=== PATIENT | male | born 1945 | race African-American/Black ===

== ENCOUNTER 2018-07-06 15:00 | Inpatient (IN) | payer MEDICARE ==
[~2018-07-06] VITALS: Ht 193 cm; Wt 70.0 kg
[2018-07-06] MEDS ORDERED: ASPIRIN EC81 M1 PO (15:12)
[2018-07-06] MEDS ORDERED: TENORMIN50 MG PO (15:12)
[2018-07-06] MEDS ORDERED: ATIVAN1 MG PO (15:12)
[2018-07-06] MEDS ORDERED: LIPITOR10 MG PO (15:12)
[2018-07-06] MEDS ORDERED: ATROPINE SULFATE (15:15)
[2018-07-06] MEDS ORDERED: DEPAKENE 2250 MG/5 M PO (15:16)
[2018-07-06] MEDS ORDERED: DEPAKOTE ER250 MG PO (15:16)
[2018-07-06] MEDS ORDERED: COLACE100 MG PO (15:17)
[2018-07-06] MEDS ORDERED: ELIQUIS5 MG PO (15:17)
[2018-07-06] MEDS ORDERED: FOLIC ACID1 MG PO (15:18)
[2018-07-06] MEDS ORDERED: HALDOL5 MG PO (15:18)
[2018-07-06] MEDS ORDERED: CHRONULAC30 ML PO (15:19)
[2018-07-06] MEDS ORDERED: LEVOFLOXACIN500 MG PO (15:19)
[2018-07-06] MEDS ORDERED: INGREZZA (15:19)
[2018-07-06] MEDS ORDERED: MAALOX ADVANCE355 ML PO (15:20)
[2018-07-06] MEDS ORDERED: TRAZODONE HCL150 MG PO (15:20)
[2018-07-06] MEDS ORDERED: MULTI-DAY VITAM1 TAB PO (15:20)
[2018-07-06] MEDS ORDERED: VITAMIN D31000 UNIT PO (15:21)
[2018-07-06] MEDS ORDERED: ACETAMINOPHEN325 MG PO (15:21)
[2018-07-06] MEDS ORDERED: ZYPREXA15 MG PO (15:22)
[2018-07-06 16:23] LABS: INR 1.86 (0.85-1.17); PROTIME 20.8 SECONDS (11.6-15.0)
[2018-07-06 16:26] LABS: BASOPHILS 0.1 % (0-2); EOSINOPHILS 0 % (0-7); HEMATOCRIT 38.3 % (42.0-54.0); HEMOGLOBIN 11.8 g/dL (13.5-17.5); IMMATURE GRANULOCYTES 1.1 % (0-5); LYMPHOCYTES 8.6 % (15-50); MCH 23.4 pg (26.0-34.0); MCHC 30.8 g/dL (31.0-37.0); MEAN PLATELET VOLUME 9.3 fL (7.4-10.4); MONOCYTES 20.3 % (2-11); NEUTROPHILS 69.9 % (40-80); PLATELET COUNT 212 10x3/uL (130-400); RBC 5.04 10x6/uL (4.20-6.10); WBC 15.9 10x3/uL (4.8-10.8)
[2018-07-06 16:30] LABS: ALBUMIN 1.8 g/dL (3.4-5.0); ALKALINE PHOSPHATASE 52 U/L (46-116); ALT (SGPT) 35 U/L (10-68); BILIRUBIN - TOTAL 0.36 mg/dL (0.2-1.3); CALC OSMOLALITY 302 mosm/kg (275-300); CALCIUM 9.1 mg/dL (8.5-10.1); CARBON DIOXIDE 32.6 mmol/L (21.0-32.0); CHLORIDE - SERUM 112 mmol/L (98-107); CREATININE - SERUM 0.9 mg/dL (0.6-1.3); GLUCOSE 99 mg/dL (74-106); POTASSIUM - SERUM 4.3 mmol/L (3.5-5.1); PROTEIN - SERUM 6.5 g/dL (6.4-8.2); SODIUM 151 mmol/L (136-145); UREA NITROGEN 20 mg/dL (7-18); eGFR NON AFRICAN AMERICAN 88 mL/min (90-120)
[2018-07-06 16:31] LABS: MAGNESIUM - SERUM 2.4 mg/dL (1.8-2.4); TROPONIN-I < 0.017 ng/mL (0.000-0.060)
--- NOTE | 2018-07-06 17:20 | NUR ---
IN AND OUT CATH FOR URINE, SAMPLE TO LAB.
[2018-07-06 17:32] LABS: APPEARANCE CLEAR (CLEAR); BILIRUBIN NEGATIVE (NEGATIVE); COLOR YELLOW (YELLOW); GLUCOSE NEGATIVE (NEGATIVE); KETONE NEGATIVE (NEGATIVE); NITRITE NEGATIVE (NEGATIVE); PROTEIN NEGATIVE (NEGATIVE); UROBILINOGEN NORMAL (NORMAL)
--- NOTE | 2018-07-06 19:00 | NUR ---
REPORT RECEIVED AND CARE OF PT ASSUMED. PT JUST ARRIVED ON UNIT FROM ER. TRANSFERRED TO BED AND POSITIONED FOR COMFORT. IV TO LEFT AC...STARTED IV FLUIDS AT 125 ML/HR PER ORDER. HELL PROTECTORS IN PLACE FROM ALF.
--- NOTE | 2018-07-06 19:40 | NUR ---
TELEMETRY PLACED PER ORDER. PT READING 66 SR AT THIS ASSESSMENT. CONTINUOUS PULSE OX IN USE. WILL CONTINUE TO MONITOR FOR NEEDS.
[2018-07-06 20:00] VITALS: BP 132/64
--- NOTE | 2018-07-06 20:20 | NUR ---
CALLED DR VAUGHAN TO ADVISE OF CONSULT. RECEIVED ORDER TO DISCONTINUE ELIQUIS AND KEEP ON LOVENOX. WILL SEE PT IN THE AM.
--- NOTE | 2018-07-06 21:38 | NUR ---
HS MEDICATIONS GIVEN CRUSHED MIXED WITH PUDDING. PT TOLERATED WELL.
--- NOTE | 2018-07-06 22:50 | NUR ---
RECEIVED CALL FROM RUSSEL ORDAZ PT'Renetta ADAME. GAVE UPDATE WITH PT CONSENT.
[2018-07-07] VITALS (7 sets, daily range): BP systolic 107–132; BP diastolic 53–66; Ht 193 cm; Wt 70.0 kg
--- NOTE | 2018-07-07 00:31 | NUR ---
ADMISSION ASSESSMENT AND HISTORY COMPLETE.
[2018-07-07 06:49] LABS: HEMATOCRIT 37.9 % (42.0-54.0); HEMOGLOBIN 11.5 g/dL (13.5-17.5); MCH 23.1 pg (26.0-34.0); MCHC 30.3 g/dL (31.0-37.0); MCV 76.1 fL (80.0-100.0); MEAN PLATELET VOLUME 9.3 fL (7.4-10.4); PLATELET COUNT 190 10x3/uL (130-400); RBC 4.98 10x6/uL (4.20-6.10); WBC 18.7 10x3/uL (4.8-10.8)
[2018-07-07 07:15] LABS: CALC OSMOLALITY 294 mosm/kg (275-300); CALCIUM 8.9 mg/dL (8.5-10.1); CARBON DIOXIDE 28.1 mmol/L (21.0-32.0); CHLORIDE - SERUM 111 mmol/L (98-107); CREATININE - SERUM 0.7 mg/dL (0.6-1.3); GLUCOSE 132 mg/dL (74-106); POTASSIUM - SERUM 4.4 mmol/L (3.5-5.1); SODIUM 147 mmol/L (136-145); eGFR NON AFRICAN AMERICAN > 90 mL/min (90-120)
[2018-07-07 07:17] LABS: UREA NITROGEN 14 mg/dL (7-18)
[2018-07-07 07:24] LABS: LYMPHOCYTES 7 % (15-50); MONOCYTES 10 % (2-11); NEUTROPHILS 75 % (40-80); PLATELET ESTIMATE NORMAL
--- NOTE | 2018-07-07 08:50 | NUR ---
ADMINISTERED PT MEDS WITH APPLESAUCE, ATTEMPTED TO FEED PT BREAKFAST, PT ORDERS STATE PUREED DIET, PT HAD EGGS BISCUIT AND HANCOCK ON TRAY NOT PUREED. ABLE TO FEED PT 2 SPOONFULS OF EGGS AND ONE OF IATMEAL. PT THEN REFUSED TO OPEN MOUTH FOR ANY MORE. WILL ATTEMPT AFTER A LITTLE TIME GOES BY. PT IS OF LITTLE ORDS. WILL CONTINUE WITH PLAN OF CARE
--- NOTE | 2018-07-07 16:15 | NUR ---
ASSITED REGIONAL EDUCATION COORDINATOR WITH CHANGING PT HE IS INCONTINENT. IN ROOM WITH PT WHILE DR VAUGHAN ASKED QUESTIONS. PT WAS ABLE TO ANSWER QUESTIONS APPROPRATELY. PT STATED HE WAS HUNGRY. REHEATED PT LUNCH AND PT WAS ABLE TO EAT 25% OF TRAY. CONTINUE WITH PLAN OF CARE
--- NOTE | 2018-07-07 18:47 | NUR ---
I have reviewed this patient and I concur with the Shift Assessment completed by the Licensed Practical Nurse today this shift.
--- NOTE | 2018-07-07 19:00 | NUR ---
REPORT RECEIVED AND CARE OF PT ASSUMED. PT LYING IN MID KOVACS'S POSITION WITH EYES CLOSED AND EASY RESPIRATIONS....VERY LETHARGIC AND DOES NOT RESPOND TO VOICE. PULSE OX 100% WITH PULSE OF 68 AT THIS ASSESSMENT. WILL MONITOR CLOSLEY FOR NEEDS.
--- NOTE | 2018-07-07 21:52 | NUR ---
CRUSHED HS MEDICATIONS AND MIXED WITH APPLESAUCE. PT ONLY TOOK SMALL PORTION...WOULD NOT WAKE UP ENOUGH TO FINISH MEDS...VERY LETHARGIC. WILL CONTINUE TO MONITOR FOR NEEDS.
[2018-07-08] VITALS (7 sets, daily range): BP systolic 104–130; BP diastolic 59–82
[2018-07-08 08:23] LABS: HEMATOCRIT 35.7 % (42.0-54.0); HEMOGLOBIN 11.4 g/dL (13.5-17.5); MCH 23.5 pg (26.0-34.0); MCHC 31.9 g/dL (31.0-37.0); MEAN PLATELET VOLUME 9.8 fL (7.4-10.4); PLATELET COUNT 186 10x3/uL (130-400); RBC 4.85 10x6/uL (4.20-6.10); RDW 14.7 % (11.5-14.5); WBC 17.2 10x3/uL (4.8-10.8)
[2018-07-08 08:26] LABS: MCV 73.6 fL (80.0-100.0)
[2018-07-08 08:44] LABS: EOSINOPHILS 2 % (0-7); LYMPHOCYTES 10 % (15-50); MONOCYTES 16 % (2-11); NEUTROPHILS 71 % (40-80)
[2018-07-08 08:45] LABS: PLATELET ESTIMATE NORMAL
--- NOTE | 2018-07-08 19:00 | NUR ---
REPORT RECEIVED AND CARE OF PT ASSUMED. PT LYING ON RIGHT SIDE PROPPED WITH PILLOWS. CHANGED ALL LINENS AND GOWN DUE TO INCONTINENCE WITH ASSISTANCE OF 2 OTHER NURSES. POSITIONED FOR COMFORT WITH PILLOW BETWEEN KNEES AND PROPPED TO LEFT SIDE WITH PILLOW. HEEL PROTECTORS IN PLACE OF BLE. IV IN RIGHT FA PATENT WITH D5 1/2 NS INFUSING AT 125 ML / HR. TELEMETRY IN PLACE AND READING 97 SR W/ BBB AT THIS ASSESSMENT. WILL MONITOR FOR NEEDS.
--- NOTE | 2018-07-08 20:32 | NUR ---
HS MEDICATIONS GIVEN WHOLE IN PUDDING.
[2018-07-09 04:30] VITALS: BP 138/76
[2018-07-09 06:29] LABS: BASOPHILS 0.1 % (0-2); EOSINOPHILS 0.8 % (0-7); HEMATOCRIT 34.7 % (42.0-54.0); HEMOGLOBIN 10.5 g/dL (13.5-17.5); IMMATURE GRANULOCYTES 2.2 % (0-5); LYMPHOCYTES 9.8 % (15-50); MCH 22.8 pg (26.0-34.0); MCHC 30.3 g/dL (31.0-37.0); MCV 75.4 fL (80.0-100.0); MEAN PLATELET VOLUME 9.2 fL (7.4-10.4); MONOCYTES 19.1 % (2-11); PLATELET COUNT 194 10x3/uL (130-400); RDW 14.9 % (11.5-14.5); WBC 13.9 10x3/uL (4.8-10.8)
[2018-07-09 06:43] LABS: CALC OSMOLALITY 292 mosm/kg (275-300); CALCIUM 8.4 mg/dL (8.5-10.1); CARBON DIOXIDE 29.3 mmol/L (21.0-32.0); CHLORIDE - SERUM 111 mmol/L (98-107); CREATININE - SERUM 0.7 mg/dL (0.6-1.3); GLUCOSE 140 mg/dL (74-106); SODIUM 147 mmol/L (136-145); UREA NITROGEN 11 mg/dL (7-18); eGFR NON AFRICAN AMERICAN > 90 mL/min (90-120)
[2018-07-09 06:44] LABS: POTASSIUM - SERUM 3.5 mmol/L (3.5-5.1)
[2018-07-09 07:56] VITALS: BP 128/56
--- NOTE | 2018-07-09 10:07 | NUR ---
PT RESTING IN BED. BREATH SOUNDS CLEAR BILAT. IV TO LEFT FOREARM, PATENT, DRESSING CDI. TELEMETRY IN PLACE. HEEL PROTECTORS ON. PT MUMBLING. BED LOW, CALL LIGHT IN REACH. NO OTHER NEEDS AT THIS TIME.
--- NOTE | 2018-07-09 10:07 | EC ---
PATIENT:GUNJAN ANNE DATE OF SERVICE: 07/06/18 SEX: M MEDICAL RECORD: [id number] DATE OF : 43 LOCATION:[facility] AGE OF PATIENT: 73 ADMISSION DATE: 07/06/18 REFERRING PHYSICIAN: INTERPRETING PHYSICIAN: CHLOE SINGER MD ECHOCARDIOGRAM REPORT ECHO CHARGES 4 ECHO COMPLETE Date: 07/07/18 CLINICAL DIAGNOSIS: PE ASSESS FOR CLOTS ECHOCARDIOGRAPHIC MEASUREMENTS (adult normal given) AC root (d.<3.7cm) 3.6 cm LV Septum d (<1.2 cm> cm Valve Excursion 1.9 cm LV Septum (systole) cm Left Atria (s.<4.0cm> 2.7 cm LVPW d(<1.2cm) cm RV (d.<2.3cm) 3.8 cm LVPW (sytole) cm LV diastole(<5.6CM) 4.4 cm MV E-F(>70mm/sec) cm LV systole 3.2 cm LVOT Diameter 2.3 cm MV exc.(>10mm) cm Est.ejection fraction (50-75%) % DOPPLER: LVIT cm/sec A 72.0 cm/sec E 59.0 cm/sec LA cm/sec RVSP 17 mmHg LVOT 96 cm/sec AOP1/2T m/s Asc. Ao 126 cm/sec RVOT 80 cm/sec RA cm/sec PA 115 cm/sec AV Gradient Peak 6.33 mmHg AV Mean 3.90 mmHg AV Area 2.7 cm MV Gradient Peak 3.49 mmHg MV Mean 1.31 mmHg MV Area cm COMMENTS: Glass Installer Technician: 2 SHAY ORTIZ Transmission Assembler: 3 Dr. Lino TAPE# PACS Pericardial Effusion N DATE OF SERVICE: Adequate 2-D echo, color-flow and spectral Doppler, and M-mode. Grossly, no LVH. LV internal dimensions are normal. Wall motion is normal. EF is greater than or equal to 55%. Aortic valve is tricuspid. No evidence of stenosis by Doppler interrogation. Left atrium is normal at 3.7 cm. Mitral valve shows no prolapse. Mild MR. Right-sided chambers are grossly normal. Trace TR. ECHOCARDIOGRAM REPORT [id number] GUNJAN ANNE TRANSINT:[id number] Voice Confirmation ID: [id number] DOCUMENT ID: [id number] CHLOE SINGER MD at 1007 CC: [id number] DICTATION DATE: 07/08/18 1006 DAY TREATMENT CLINICIAN/ART THERAPIST: 07/08/18 1706 ADM IN [place] [id number] [place] [id number]
[2018-07-09 12:37] VITALS: BP 112/64
[2018-07-09 17:23] VITALS: BP 110/60
[2018-07-09 21:24] VITALS: BP 129/52
[2018-07-10 01:28] VITALS: BP 103/56
--- NOTE | 2018-07-10 03:15 | NUR ---
I have reviewed this patient and I concur with the Shift Assessment completed by the Licensed Practical Nurse today this shift.
--- NOTE | 2018-07-10 03:30 | NUR ---
RECIEVED CALL FROM TELEMETRY THAT HEART RATE WAS 30. ENTERED ROOM, PT RESPONDED TO VERBAL/VISUAL STIMULATION SPONTANEOUSLY. O2 REAPPLIED ON PT. SPO2 97% ON 2L. PULSE READING IS 101bpm. PT STATED HE WAS COLD, REQUESTED HEATED BLANKET. CALLED CARDIAC MONITORING, INFORMED THAT PTs HEARTRATE WAS BACK TO 98bpm. WILL MONITOR CLOSELY. CONTINUOUS PULSE OX REAPPLIED.
[2018-07-10 05:34] VITALS: BP 126/71
[2018-07-10 06:37] LABS: BASOPHILS 0.2 % (0-2); EOSINOPHILS 3.3 % (0-7); HEMATOCRIT 35.1 % (42.0-54.0); HEMOGLOBIN 10.9 g/dL (13.5-17.5); IMMATURE GRANULOCYTES 2.5 % (0-5); LYMPHOCYTES 11.1 % (15-50); MCH 23.2 pg (26.0-34.0); MCHC 31.1 g/dL (31.0-37.0); MCV 74.7 fL (80.0-100.0); MEAN PLATELET VOLUME 8.8 fL (7.4-10.4); NEUTROPHILS 67.9 % (40-80); PLATELET COUNT 193 10x3/uL (130-400); RDW 14.8 % (11.5-14.5); WBC 12.6 10x3/uL (4.8-10.8)
[2018-07-10 06:43] LABS: CALC OSMOLALITY 287 mosm/kg (275-300); CALCIUM 8.7 mg/dL (8.5-10.1); CARBON DIOXIDE 28.5 mmol/L (21.0-32.0); CHLORIDE - SERUM 111 mmol/L (98-107); CREATININE - SERUM 0.6 mg/dL (0.6-1.3); POTASSIUM - SERUM 3.8 mmol/L (3.5-5.1); SODIUM 145 mmol/L (136-145); UREA NITROGEN 10 mg/dL (7-18); eGFR NON AFRICAN AMERICAN > 90 mL/min (90-120)
[2018-07-10 06:46] LABS: GLUCOSE 90 mg/dL (74-106)
--- NOTE | 2018-07-10 07:55 | NUR ---
PT IS YELLING OUT, HE WANTS SODE. 02 PLACED BACK ON PT. HE IS PULLING 02 OFF AND PULSE OX OFF. HE REFUSES TO PUT PULSE OX BACK ON.
[2018-07-10 08:38] VITALS: BP 117/84
--- NOTE | 2018-07-10 13:01 | MORECARE ---
CASE MANAGEMENT DISCHARGE SUMMARY PATIENT: GUNJAN ANNE UNIT: [id number] ADM DATE: 07/06/18 AGE: 73 : 44 SEX: M ROOM/BED: D.2219 AUTHOR: GINA HINSON PHYSICIAN: REFERRING PHYSICIAN: KETTY WALTON MD DATE OF SERVICE: 07/10/18 Discharge Plan Patient Name: GUNJAN ANNE Facility: [facility]:[place] : 1945 Planned Disposition: Nursing Facility SAY Cert Anticipated Discharge Date: Discharge Date: Expected LOS: Initial Reviewer: [email or web address] Initial Review Date: 07/06/2018 Generated: 07/10/18 2:01 pm Coverage Notice Reviewer: [id number] - Sharonda Keating Notice Issued Date-Time: 07/10/2018 12:44 Notice Type: IM Discharge Notice Notice Delivered To: Patient Relationship to Patient: Medical Billing Supervisor Name: Delivery Method: HAND - Hand Delivered Cierra Days: Prior Verbal Notification: Recipient Understood Notice: Yes Recipient Signature: Med Rec Note Co-signed by Attending: Coverage Notice Comment: pt unable to sign Patient Name: GUNJAN ANNE Page [phone] at 1301 All edits/amendments must be made on the electronic document DICTATION DATE: 07/10/18 1301 MACHINE LOAD CLERK: GEOFFREY 07/10/18 1301 RPT#: [id number] DC DATE: STATUS: ADM IN [facility] [address] [place] [address] END OF REPORT
--- NOTE | 2018-07-10 13:09 | MORECARE ---
CASE MANAGEMENT DISCHARGE SUMMARY PATIENT: GUNJAN ANNE UNIT: [id number] ADM DATE: 07/06/18 AGE: 73 : 44 SEX: M ROOM/BED: D.2219 AUTHOR: GINA HINSON PHYSICIAN: REFERRING PHYSICIAN: KETTY WALTON MD DATE OF SERVICE: 07/10/18 Discharge Plan Patient Name: GUNJAN ANNE Facility: [facility]:[place] : 1945 Planned Disposition: Nursing Facility SAY Cert Anticipated Discharge Date: Discharge Date: Expected LOS: Initial Reviewer: [email or web address] Initial Review Date: 07/06/2018 Generated: 07/10/18 2:09 pm Comments DCP- Discharge Planning Updated by [email or web address]: Sharonda Keating on 07/10/18 12:[address] Patient Name: GUNJAN ANNE Admission Status: ER Accout number: [id number] Admission Date: 07-06-2018 : 1945 Admission Diagnosis:ACUTE EMBOLISM AND THOMBOS UNSP DEEP VN UNSP LOWER EXTR Attending: KETTY WALTON Current LOS: 4 Anticipated DC Date: Planned Disposition: Nursing Facility [facility] Cert Primary Insurance: MEDICARE A & B Discharge Planning Comments: PATIENT WILL BE DISHCARGING BACK TO THE [facility] (OLD [facility]ERTIAGE ) THIS IS WHERE HE LIVES, HE WILL BE GOING TO A SENIOR CARE BED. THEY WILL PICK HIM UP AROUND 3:00. IMM EXPLAINED AND GIVEN. HE WOULD/COULD NOT SIGN THE IMM. COPY PLACED IN ROOM. KAVITHA WITH [facility] NOTIFIED AND FAXED CLINICALS. CM TO FOLLOW AND ASSIST NEEDED Fingerprinter: Sharonda Keating External Providers External Provider: [facility] Next Contact Date: Service Request Date: Service Type: Resolution: Reviewer: Comments: Coverage Notice Reviewer: [id number] - Sharonda Keating Notice Issued Date-Time: 07/10/2018 12:44 Notice Type: IM Discharge Notice Notice Delivered To: Patient Relationship to Patient: Aquatic Facility Manager Name: Delivery Method: HAND - Hand Delivered Cierra Days: Prior Verbal Notification: Recipient Understood Notice: Yes Recipient Signature: Med Rec Note Co-signed by Attending: Coverage Notice Comment: pt unable to sign Last DP export: 07/10/18 12:01 p Patient Name: GUNJAN ANNE Page [phone] at 1309 All edits/amendments must be made on the electronic document DICTATION DATE: 07/10/181307 RESIDENTIAL REAL ESTATE SALES MANAGER: GEOFFREY 07/10/181307 RPT#: [id number] DC DATE: STATUS: ADM IN [facility] [address] [place] [address] END OF REPORT
--- NOTE | 2018-07-11 14:55 | MORECARE ---
CASE MANAGEMENT DISCHARGE SUMMARY PATIENT: GUNJAN ANNE UNIT: [id number] ADM DATE: 07/06/18 AGE: 73 : 44 SEX: M ROOM/BED: D.2219 AUTHOR: GINA HINSON PHYSICIAN: REFERRING PHYSICIAN: KETTY WALTON MD DATE OF SERVICE: 07/11/18 Discharge Plan Patient Name: GUNJAN ANNE Facility: [facility]:[place] : 1945 Planned Disposition: Nursing Facility SAY Cert Anticipated Discharge Date: Discharge Date: 07/10/2018 Expected LOS: 0 Initial Reviewer: [email or web address] Initial Review Date: 07/06/2018 Generated: 07/11/18 3:55 pm Comments DCP- Discharge Planning Updated by [email or web address]: Sharonda Keating on 07/10/18 12:[address] Patient Name: GUNJAN NANE Admission Status: ER Accout number: [id number] Admission Date: 07-06-2018 : 1945 Admission Diagnosis:ACUTE EMBOLISM AND THOMBOS UNSP DEEP VN UNSP LOWER EXTR Attending: KETTY WALTON Current LOS: 4 Anticipated DC Date: Planned Disposition: Nursing Facility [facility] Cert Primary Insurance: MEDICARE A & B Discharge Planning Comments: PATIENT WILL BE DISHCARGING BACK TO THE [facility] (OLD HERTIAGE ) THIS IS WHERE HE LIVES, HE WILL BE GOING TO A [facility] BED. THEY WILL PICK HIM UP AROUND 3:00. IMM EXPLAINED AND GIVEN. HE WOULD/COULD NOT SIGN THE IMM. COPY PLACED IN ROOM. KAVITHA WITH [facility] NOTIFIED AND FAXED CLINICALS. CM TO FOLLOW AND ASSIST NEEDED Operations Label Clerk: Sharonda Keating External Providers External Provider: [facility] Next Contact Date: Service Request Date: Service Type: Resolution: Reviewer: Comments: Coverage Notice Reviewer: [id number] - Sharonda Keating Notice Issued Date-Time: 07/10/2018 12:44 Notice Type: IM Discharge Notice Notice Delivered To: Patient Relationship to Patient: Windows Admin Name: Delivery Method: HAND - Hand Delivered Cierra Days: Prior Verbal Notification: Recipient Understood Notice: Yes Recipient Signature: Med Rec Note Co-signed by Attending: Coverage Notice Comment: pt unable to sign Last DP export: 07/10/18 12:09 p Patient Name: GUNJAN ANNE Page [phone] at 145 All edits/amendments must be made on the electronic document DICTATION DATE: 07/11/181453 DIRECTOR OF CATERING SALES: GEOFFREY 07/11/184 RPT#: [id number] DC DATE:07/10/18 STATUS: DIS IN [facility] [address] [place] [address] END OF REPORT
== END 2018-07-10 16:51 | DRG 175 ==
LOC: D.ER 15:00 → D.MS 18:36
PROVIDERS: Emergency Medicine; Internal Medicine Pulmonary Disease; ADMIT Legal Medicine; ATTEND Legal Medicine
DX: I26.99 Other pulmonary embolism without acute cor pulmonale (principal); J18.9 Pneumonia, unspecified organism; I82.402 Acute embolism and thrombosis of unspecified deep veins of left lower extremity; E86.0 Dehydration; I10 Essential (primary) hypertension; E78.5 Hyperlipidemia, unspecified; I69.820 Aphasia following other cerebrovascular disease; D64.9 Anemia, unspecified; F20.9 Schizophrenia, unspecified

== ENCOUNTER 2018-07-16 07:20 | Inpatient (IN) | payer MEDICARE ==
[2018-07-16] VITALS (17 sets, daily range): BP systolic 116–148; BP diastolic 57–88; BMI 18.3
[~2018-07-16] VITALS: Ht 193 cm; Wt 67.1 kg
[~2018-07-16 07:20] MED LIST: ACETAMINOPHEN325 MG PO; ASPIRIN EC81 M1 PO; ATIVAN1 MG PO; ATROPINE SULFATE; CHRONULAC30 ML PO; COLACE100 MG PO; DEPAKENE 2250 MG/5 M PO; DEPAKOTE ER250 MG PO; ELIQUIS5 MG PO; FOLIC ACID1 MG PO; HALDOL5 MG PO; INGREZZA; LEVOFLOXACIN500 MG PO; LIPITOR10 MG PO; MAALOX ADVANCE355 ML PO; MULTI-DAY VITAM1 TAB PO; TENORMIN50 MG PO; TRAZODONE HCL150 MG PO; VITAMIN D31000 UNIT PO; ZYPREXA15 MG PO
--- NOTE | 2018-07-16 07:40 | NUR ---
RT AT BS FOR ABG'S. RESULTS SHOWN TO DR STALEY. NRM REMOVED AND PT PLACED ON NC @ 2 LPM.
[2018-07-16 07:56] LABS: HEMATOCRIT 37.4 % (42.0-54.0); HEMOGLOBIN 11.7 g/dL (13.5-17.5); MCH 23.4 pg (26.0-34.0); MCHC 31.3 g/dL (31.0-37.0); MCV 74.8 fL (80.0-100.0); MEAN PLATELET VOLUME 9.1 fL (7.4-10.4); PLATELET COUNT 337 10x3/uL (130-400); RDW 15.1 % (11.5-14.5); WBC 27.8 10x3/uL (4.8-10.8)
[2018-07-16] MEDS ORDERED: DOXYCYCLINE HY100 M2 PO (07:59)
[2018-07-16] MEDS ORDERED: ASCORBIC ACID500 MG PO (08:02)
[2018-07-16] MEDS ORDERED: GALZIN25 MG PO (08:02)
[2018-07-16 08:08] LABS: APTT 72.3 SECONDS (22.8-39.4); INR 2.14 (0.85-1.17); PROTIME 23.2 SECONDS (11.6-15.0)
[2018-07-16 08:24] LABS: ALBUMIN 1.8 g/dL (3.4-5.0); ALKALINE PHOSPHATASE 68 U/L (46-116); ALT (SGPT) 51 U/L (10-68); BILIRUBIN - TOTAL 0.45 mg/dL (0.2-1.3); CALC OSMOLALITY 309 mosm/kg (275-300); CALCIUM 9.5 mg/dL (8.5-10.1); CARBON DIOXIDE 26.2 mmol/L (21.0-32.0); CKMB 5.2 U/L (0.0-3.6); CREATINE KINASE 596 UL (21-232); CREATININE - SERUM 0.7 mg/dL (0.6-1.3); GLUCOSE 110 mg/dL (74-106); POTASSIUM - SERUM 3.7 mmol/L (3.5-5.1); PRO BNP 348 pg/mL (0-125); PROTEIN - SERUM 6.9 g/dL (6.4-8.2); SODIUM 155 mmol/L (136-145); TROPONIN-I < 0.017 ng/mL (0.000-0.060); UREA NITROGEN 18 mg/dL (7-18); eGFR NON AFRICAN AMERICAN > 90 mL/min (90-120)
[2018-07-16 08:26] LABS: CHLORIDE - SERUM 118 mmol/L (98-107)
[2018-07-16 08:30] LABS: ANISOCYTOSIS 2+; LYMPHOCYTES 6 % (15-50); MONOCYTES 5 % (2-11); NEUTROPHILS 80 % (40-80); PLATELET ESTIMATE NORMAL; POLYCHROMASIA 1+
--- NOTE | 2018-07-16 08:30 | NUR ---
ALLIE TC FROM LAB CHLORIDE 118. DR STALEY NOTIFIED
--- NOTE | 2018-07-16 09:30 | NUR ---
LAB AT BS, GOLDIE DRAWN X2
--- NOTE | 2018-07-16 10:05 | NUR ---
FC INSERTED, URINES SPEC OBTAINED, LABELED AT BS AND SENT TO LAB
[2018-07-16 10:16] LABS: APPEARANCE CLEAR (CLEAR); BILIRUBIN NEGATIVE (NEGATIVE); COLOR YELLOW (YELLOW); GLUCOSE NEGATIVE (NEGATIVE); KETONE MODERATE mg/dL (NEGATIVE); NITRITE NEGATIVE (NEGATIVE); PROTEIN NEGATIVE (NEGATIVE); UROBILINOGEN NORMAL (NORMAL)
[2018-07-16 10:18] LABS: AMORPHOUS SEDIMENT >1+ /lpf (NONE SEEN); BACTERIA FEW /hpf (NONE SEEN); EPITHELIAL CELLS 0-5 /hpf (0-5); MUCUS <1+ /lpf (NONE SEEN); RED CELLS - URINE 25-50 /hpf (0-5); WHITE CELLS - URINE 0-5 /hpf (0-5)
--- NOTE | 2018-07-16 10:37 | NUR ---
REPORT CALLED TO IVONE SAPP BY SBAR FORMAT
--- NOTE | 2018-07-16 19:00 | NUR ---
SHIFT ASSESSMENT COMPLETE. PT IS NON-VERBAL AND DOES NOT FOLLOW ANY COMMANDS, PERRLA, 3 MM, BRISK REACTION TO LIGHT. NC ON @ 5 L/MIN. S1S2 AUDIBLE, HR 101 SINUS TACH SHOWING ON MONITOR. RR SHALLOW, CLEAR LUNG SOUNDS HEARD BILAT THROUGHOUT ALL LOBES, O2 SAT 94%. RADIAL PULSES PALP. R HAND PIV INFUSING LR @ 125 ML/HR, NO S/S OF INFILTRATION NOTED. ABD FLAT, BS ACTIVE X4. ROE CATH INTACT DRAINING RANDALL URINE. UPPER AND LOWER EXT ARE CONTRACTED. UNABLE TO PROVIDE PASSIVE ROM, REPOSITIONED WITH PILLOW INBETWEEN LEGS. B/L PRESSURE ULCERS TO HEELS, SEE SKIN ASSESSMENT FOR FURTHER DETIALS. TIGHT PARAMETERS SET ON ICU MONITORS. HONEY THICKENED LIQUID AT BEDSIDE, ORAL CARE PROVIDED. VSS. WILL CONT CLOSE MONITORING IN ICU.
--- NOTE | 2018-07-16 21:28 | NUR ---
CRUSED PILLS AND PLACED THEM IN PUDDING. PT WAS ABLE TO SWALLOW 1/2 TBS OF PUDDING WITH CRUSHED MEDS. WHEN TRYING TO TAKE THE REST OF THE MEDS HE STARTED CHOKING AND SPIT THE REST OF HIS MEDS UP. DESAT TO 88%. SUCTIONED, NC ON @ 5 L/MIN, PT'S SAT IS NOW 94-98%. WILL UPDATE EMAR OF MEDS NOT TAKEN. WILL CONT TO MONITOR VERY CLOSELY.
--- NOTE | 2018-07-16 23:00 | NUR ---
REPOSITIONED FOR COMFORT. REASSESSMENT COMPLETE. NO CHANGES FROM PREVIOUS ASSESSMENT. HE IS UNABLE TO COMMUNICATE, BUT HE DOES NOT APPEAR TO BE IN ANY PAIN AT THIS TIME. VSS. WILL CONT WITH POC. SEE FLOWSHEET FOR FURTHER DETIALS.
[2018-07-17] VITALS (11 sets, daily range): BP systolic 116–151; BP diastolic 54–75; Ht 193 cm; Wt 67.1 kg
--- NOTE | 2018-07-17 01:00 | NUR ---
PT RESTING PEACEFULLY WITH NO SIGNS OF ACUTE DISTRESS NOTED. VSS. WILL CONT WITH POC.
--- NOTE | 2018-07-17 03:00 | NUR ---
REASSESSMENT COMPLETE. PT HAS WET COUGH. UNABLE TO PROVIDE ORAL CARE D/T PT REFUSING. ENCOURAGED ORAL CARE AND STATED THE BENEFITS. NO FURTHER CHANGES IN PT CONDITION. SEE FLOWSHEET FOR FURTHER DETIALS. VSS. WILL CONT WITH POC.
--- NOTE | 2018-07-17 05:00 | NUR ---
CHG BATH AND COMPLETE LINEN CHANGE PROVIDED. ROE CARE AND ORAL CARE PROVIDED. REPOSITIONED FOR COMFORT. PT HAS WET COUGH,, NON-PRODUCTIVE. ENCOURAGED COUGHING AND DEEP BREATHING. TV ON, CALL LIGHT IN REACH. ALL NEEDS MET. WILL CONT WITH POC.
[2018-07-17 06:51] LABS: HEMATOCRIT 39.6 % (42.0-54.0); HEMOGLOBIN 12.3 g/dL (13.5-17.5); LYMPHOCYTES 6.1 % (15-50); MCH 23.7 pg (26.0-34.0); MCHC 31.1 g/dL (31.0-37.0); MCV 76.3 fL (80.0-100.0); MEAN PLATELET VOLUME 9.3 fL (7.4-10.4); NEUTROPHILS 84.1 % (40-80); RBC 5.19 10x6/uL (4.20-6.10); RDW 14.7 % (11.5-14.5)
[2018-07-17 07:08] LABS: PLATELET COUNT 233 10x3/uL (130-400); WBC 18.3 10x3/uL (4.8-10.8)
[2018-07-17 07:29] LABS: ALBUMIN 1.6 g/dL (3.4-5.0); ALKALINE PHOSPHATASE 65 U/L (46-116); ALT (SGPT) 47 U/L (10-68); CALCIUM 8.9 mg/dL (8.5-10.1); CARBON DIOXIDE 28.3 mmol/L (21.0-32.0); CREATININE - SERUM 0.6 mg/dL (0.6-1.3); GLUCOSE 79 mg/dL (74-106); POTASSIUM - SERUM 3.5 mmol/L (3.5-5.1); PROTEIN - SERUM 5.4 g/dL (6.4-8.2); SODIUM 158 mmol/L (136-145); eGFR NON AFRICAN AMERICAN > 90 mL/min (90-120)
[2018-07-17 07:31] LABS: CALC OSMOLALITY 311 mosm/kg (275-300); UREA NITROGEN 12 mg/dL (7-18)
[2018-07-17 07:32] LABS: CHLORIDE - SERUM 119 mmol/L (98-107)
[2018-07-17 07:43] LABS: VALPROIC ACID (DEPAKOTE) < 3.0 ug/mL (50.0-100.0)
--- NOTE | 2018-07-17 07:48 | NUR ---
0700 ASLEEP NO DISTRESS N0TEDD REMAINS AT 5L/NC ASSESSMENT COMPLETE
--- NOTE | 2018-07-17 07:49 | NUR ---
0749 ALEC PAIZ PICK UP ATTENDANT NOTIFIED OF CRITICAL LAB CHLORIDE 119. TRANSFER ORDERS NOTED D/C LR. NEW ORDER NOTED FOR SWALLOW EVAL AND D5W AT 125
--- NOTE | 2018-07-17 11:39 | NUR ---
RECEIVED PATIENT TO FLOOR FROM [facility], ICU. PATIENT RESTING COMFORTABLY MAKING MUMBLY SOUNDS. NO GRIMACING OR SIGNS OF DISTRESS. ASSUMED CARE.
--- NOTE | 2018-07-17 11:54 | NUR ---
0930 REPOSITIONED IN BED FOR COMFORT
--- NOTE | 2018-07-17 11:55 | NUR ---
8484 REPORT CALLED TO ALEJANDRO WISEMAN ON [facility] CALLED ACT TUTOR FOR TELE MONITOR TO BE DELIVERED TO ROOM 1287
--- NOTE | 2018-07-17 15:57 | NUR ---
PRN TYLENOL GIVEN FOR FEVER 102.3. GIVEN CRUSHED IN WITH MODERATE DIFFICULTY.
--- NOTE | 2018-07-17 17:51 | NUR ---
BRAEDEN GOODE, ATTEMPTED TO FEED PATIENT BUT HE WOULD NOT SWALLOW OR OPEN HIS MOUTH. REFUSED TO EAT.
--- NOTE | 2018-07-17 21:00 | NUR ---
LYING QUEITLY WITH NO DISTRESS NOTED. 02 @ 5L PER NC ON. RESP UNALBORED. IV INFUSING TO RIGHT HAND WITHOUT REDNESS OR EDEMA NOTED. TURNED AND POSITIONED FOR COMFORT. CL IN REACH
[2018-07-18 00:40] VITALS: BP 120/59
--- NOTE | 2018-07-18 03:07 | NUR ---
I have reviewed this patient and I concur with the Shift Assessment completed by the Licensed Practical Nurse today this shift.
[2018-07-18 05:21] VITALS: BP 132/69
--- NOTE | 2018-07-18 07:20 | NUR ---
SPOKE WITH CIRILO MICHAEL ABOUT PATIENT HAVING DIFFICULTY SWALLOWING MEDS/HOLDING MEDS IN MOUTH AND DIFFICULT TO AROUSE. ASKED IF COULD CHANGE ANY MEDS TO IV. CIRILO STATES NO MEDS CAN BE CHANGED TO IV. STATES TO ORDER SWALLOW STUDY. STATES IF CAN'T GIVE MEDS, DOCUMENT NOT GIVEN. WILL ORDER SWALLOW.
[2018-07-18 07:24] LABS: HEMATOCRIT 29.8 % (42.0-54.0); MCH 22.7 pg (26.0-34.0); MCHC 30.2 g/dL (31.0-37.0); MCV 75.3 fL (80.0-100.0); MEAN PLATELET VOLUME 8.2 fL (7.4-10.4); PLATELET COUNT 165 10x3/uL (130-400); RBC 3.96 10x6/uL (4.20-6.10); WBC 20.7 10x3/uL (4.8-10.8)
[2018-07-18 07:31] LABS: CALC OSMOLALITY 294 mosm/kg (275-300); CALCIUM 8.5 mg/dL (8.5-10.1); CARBON DIOXIDE 30.2 mmol/L (21.0-32.0); CHLORIDE - SERUM 112 mmol/L (98-107); CREATININE - SERUM 0.7 mg/dL (0.6-1.3); POTASSIUM - SERUM 3.6 mmol/L (3.5-5.1); SODIUM 148 mmol/L (136-145); UREA NITROGEN 10 mg/dL (7-18); eGFR NON AFRICAN AMERICAN > 90 mL/min (90-120)
[2018-07-18 07:32] LABS: GLUCOSE 126 mg/dL (74-106)
[2018-07-18 08:30] LABS: ANISOCYTOSIS OCC; LYMPHOCYTES 8 % (15-50); MONOCYTES 17 % (2-11); NEUTROPHILS 72 % (40-80); PLATELET ESTIMATE NORMAL
--- NOTE | 2018-07-18 08:43 | NUR ---
PATIENT GURGLING SPUTUM IN MOUTH. HOOKED TO SUCTION. MODERATE AMOUNT OF WHITE FROTHY SPUTUM SUCTIONED FROM PATIENT MOUTH. TRAY REMOVED FROM ROOM. PLACE NPO SIGN ON DOOR UNTIL AFTER SWALLOW EVAL.
--- NOTE | 2018-07-18 08:47 | NUR ---
PATIENT ALERT BUT NOT VERBALLY RESPONSIVE TO QUESTIONS ASKED. LUNGS DIMINISHED BILATERALLY. ROE IN PLACE AND DRAINING YELLOW URINE. HEART SOUNDS S1 AND S2 HEARD IN ALL TEJADA. TELEMETRY IN PLACE. BOWEL SOUNDS ACTIVE X 4. SORES TO BILATERAL HEELS. SKIN OTHERWISE INTACT WITHOUT REDNESS. BED LOW. FALL PRECAUTIONS IN PLACE. CALL CHAMBERS AND PERSONAL ITEMS IN REACH. WILL CONTINUE TO MONITOR.
[2018-07-18 08:52] VITALS: BP 98/55
--- NOTE | 2018-07-18 09:56 | NUR ---
RESTING IN BED. NO PAIN NOTED PER DALE RUBY FACES. WILL CONTINUE TO MONITOR.
--- NOTE | 2018-07-18 10:49 | NUR ---
PATIENT WITH SPUTUM COMING OUT OF MOUTH. SUCTIONED. WHITE FROTHY SPUTUM IN TUBE.
[2018-07-18 12:20] VITALS: BP 115/56
--- NOTE | 2018-07-18 13:59 | NUR ---
SPOKE WITH YOLIE WITH DR FAM ABOUT SPEECH THERAPY RECOMMENDATIONS. STATED PUT IN ORDER FOR NPO STATUS AND START PROCAL AT 40. CIVIL ENGINEERING ASSISTANT STATED WILL PUT IN OTHER ORDERS FOR MEDICATIONS AND NEEDED.
--- NOTE | 2018-07-18 16:02 | MORECARE ---
CASE MANAGEMENT DISCHARGE SUMMARY PATIENT: GUNJAN ANNE UNIT: [id number] ADM DATE: 07/16/18 AGE: 73 : 44 SEX: M ROOM/BED: D.2227 AUTHOR: GINA HINSON PHYSICIAN: REFERRING PHYSICIAN: KETTY WALTON MD DATE OF SERVICE: 07/18/18 Discharge Plan Patient Name: GUNJAN ANNE Facility: [facility]:[place] : 1945 Planned Disposition: Nursing Facility SAY Cert Anticipated Discharge Date: Discharge Date: Expected LOS: Initial Reviewer: [email or web address] Initial Review Date: 07/18/2018 Generated: 07/18/18 5:02 pm DCPIA - Discharge Planning Initial Assessment Updated by [email or web address]: Catrina Connell on 07/18/18 3:59 pm * Is the patient Alert and Oriented? No * How many steps to enter\exit or inside your home? 0/0 * Pharmacy Alf provide all medications * Preadmission Environment [facility] Home [facility] * Facility Name [facility] [place]) * ADLs Total Dependent * Other Equipment All equipment provided by the [place] [facility] * List name and contact numbers for known caregivers / representatives who currently or will assist patient after discharge: Lore donato - [phone] Chao schwarz - [phone] * Community resources currently utilized None * Additional services required to return to the preadmission environment? No * Can the patient safely return to the preadmission environment? Yes * Has this patient been hospitalized within the prior 30 days at any hospital? No Patient Name: GUNJAN ANNE Page [phone] at 1602 All edits/amendments must be made on the electronic document DICTATION DATE: 07/18/18 160 DIRECTOR METABOLISM: GEOFFREY 07/18/18 160 RPT#: [id number] DC DATE: STATUS: ADM IN [facility] [address] [place] [address] END OF REPORT
--- NOTE | 2018-07-18 16:11 | NUR ---
ROE REMOVED PER ORDER WITHOUT DIFFICULTY. 1100CC URINE OUTPUT.
--- NOTE | 2018-07-18 16:11 | MORECARE ---
CASE MANAGEMENT DISCHARGE SUMMARY PATIENT: GUNJAN ANNE UNIT: [id number] ADM DATE: 07/16/18 AGE: 73 : 44 SEX: M ROOM/BED: D.2227 AUTHOR: JOYADOC PHYSICIAN: REFERRING PHYSICIAN: KETTY WALTON MD DATE OF SERVICE: 07/18/18 Discharge Plan Patient Name: GUNJAN ANNE Facility: [facility]:[place] : 1945 Planned Disposition: Nursing Facility [facility] Cert Anticipated Discharge Date: Discharge Date: Expected LOS: Initial Reviewer: [email or web address] Initial Review Date: 07/18/2018 Generated: 07/18/18 5:10 pm Comments DCP- Discharge Planning Updated by [email or web address]: Catrina Connell on 07/18/18 3:[address] Patient Name: GUNJAN ANNE Admission Status: ER Accout number: [id number] Admission Date: 07-16-2018 : 1945 Admission Diagnosis: Attending: KETTY WALTON Current LOS: 2 Anticipated DC Date: Planned Disposition: Nursing Facility [facility] Cert Primary Insurance: MEDICARE A & B Discharge Planning Comments: Patient is unable to communicate to complete discharge planning. I called his niece (Lore) to discuss discharge plan. Lore states he lives at [facility] ([facility]) and he will return there at discharge. States since he has had a blood clot in his leg, his condition has deteriorated. States he is completely dependent on the nursing staff at the alf. CM will continue to follow and assist with discharge planning/needs. Automotive Warranty Administrator: Catrina Connell DCPIA - Discharge Planning Initial Assessment Updated by [email or web address]: Catrina Connell on 07/18/18 3:59 pm * Is the patient Alert and Oriented? No * How many steps to enter\exit or inside your home? 0/0 * Pharmacy Long[facility]Term provide all medications * Preadmission Environment Electric [employer]ork Operator Long-Term * Facility Name [facility] [place] ([facility]) * ADLs Total Dependent * Other Equipment All equipment provided by the alf * List name and contact numbers for known caregivers / representatives who currently or will assist patient after discharge: Lore donato - [phone] Chao schwarz - [phone] * Community resources currently utilized None * Additional services required to return to the preadmission environment? No * Can the patient safely return to the preadmission environment? Yes * Has this patient been hospitalized within the prior 30 days at any hospital? No Coverage Notice Reviewer: [email or web address] Marlen Connell Notice Issued Date-Time: 07/18/2018 16:03 Notice Type: Patient Choice Letter Notice Delivered To: Family Member Relationship to Patient: [place] Ore Bridge Operator Name: Lore Blanco Delivery Method: PHONE - Phone Cierra Days: Prior Verbal Notification: Recipient Understood Notice: Yes Recipient Signature: Med Rec Note Co-signed by Attending: Coverage Notice Comment: RICIHE for [facility] ([facility]) Last DP export: 07/18/18 3:02 p Patient Name: GUNJAN ANNE Page [phone] at 1611 All edits/amendments must be made on the electronic document DICTATION DATE: 07/18/18 1610 CLINICAL ASSOC: GEOFFREY 07/18/18 1610 RPT#: [id number] DC DATE: STATUS: ADM IN [facility] [address] [place] [address] END OF REPORT
--- NOTE | 2018-07-18 17:34 | NUR ---
LYING IN BED. NO SIGNS OF PAIN NOTED. FALL PRECAUTIONS IN PLACE. BED LOW. WILL CONTINUE TO MONITOR.
--- NOTE | 2018-07-18 17:57 | NUR ---
PATIENT WITH WET COUGH AND SPUTUM NOTED. SUCTIONED. MODERATE AMOUNT OF SPUTUM AND MUCUS SUCTIONED. HOB AT 45 DEGREES. WILL CONTINUE TO MONITOR.
--- NOTE | 2018-07-18 18:23 | NUR ---
RESTING IN BED. NO SIGNS OF PAIN.
--- NOTE | 2018-07-18 20:00 | NUR ---
AWAKE,ALERT.NO RESPONDING VERBALLY ONLY GRUNTING NOISE.RESP EVEN AND UNALBORED. NO DISTRESS NOTED. O2 @ 5L PER NC ON. TURNED AND POSITIONED FOR COMFORT. CL IN REACH
[2018-07-18 21:01] VITALS: BP 128/74
--- NOTE | 2018-07-19 00:40 | NUR ---
I have reviewed this patient and I concur with the Shift Assessment completed by the Licensed Practical Nurse today this shift.
[2018-07-19 01:54] VITALS: BP 102/58
[2018-07-19 05:41] VITALS: BP 124/80
[2018-07-19 05:51] LABS: HEMATOCRIT 32.2 % (42.0-54.0); HEMOGLOBIN 10.2 g/dL (13.5-17.5); LYMPHOCYTES 4.9 % (15-50); MCH 24.2 pg (26.0-34.0); MCHC 31.7 g/dL (31.0-37.0); MCV 76.3 fL (80.0-100.0); MEAN PLATELET VOLUME 9.4 fL (7.4-10.4); NEUTROPHILS 88.7 % (40-80); PLATELET COUNT 150 10x3/uL (130-400); RBC 4.22 10x6/uL (4.20-6.10); RDW 14.1 % (11.5-14.5); WBC 20.2 10x3/uL (4.8-10.8)
[2018-07-19 06:08] LABS: CALC OSMOLALITY 284 mosm/kg (275-300); CALCIUM 8.2 mg/dL (8.5-10.1); CARBON DIOXIDE 27.8 mmol/L (21.0-32.0); CHLORIDE - SERUM 107 mmol/L (98-107); GLUCOSE 109 mg/dL (74-106); POTASSIUM - SERUM 3.3 mmol/L (3.5-5.1); SODIUM 143 mmol/L (136-145); UREA NITROGEN 9 mg/dL (7-18)
[2018-07-19 06:09] LABS: CREATININE - SERUM 0.5 mg/dL (0.6-1.3); eGFR NON AFRICAN AMERICAN > 90 mL/min (90-120)
--- NOTE | 2018-07-19 07:51 | NUR ---
VERBAL ORDER FROM YOLIE SCHROEDER MANAGER PIPELINE TO D/C SCDS R/T PATIENT ON ELIQUIS. VERBAL ORDER FROM MANAGER PIPELINE TO ALSO PUT IN WOUND CARE CONSULT FOR BILATERAL HEELS. ORDERS PLACED
[2018-07-19 08:30] VITALS: BP 184/103
--- NOTE | 2018-07-19 08:51 | NUR ---
MEDICATIONS NOT GIVEN R/T NPO. CIRILO URBANO PREVIOUS DISCONTINUED SCDS D/T PATIENT BEING ON ELIQUIS. CIRILO URBANO NOTIFIED THAT PATIENT NPO. STATES WILL PUT IN ORDER FOR LOVENOX.
--- NOTE | 2018-07-19 10:02 | NUR ---
SPOKE WITH DEEP ORDAZ ABOUT PATIENT HAVING PEG TUBE PLACED. STATES SHE IS HIS ONLY RELATIVE IN [place] AND MAKES DECISIONS FOR HIM IF SHE NEEDS TO. STATES SHE ALREADY SPOKE WITH CIRILO SCHROEDER THIS AM AND TOLD HIM PATIENT COULD HAVE PROCEDURE. CONSENT GIVEN OVER THE PHONE FOR PEG PLACEMENT, BLOOD IF NECESSARY, AND ANESTHESIA. DEEP STATED PATIENT DOES NOT HAVE LATEX ALLERGY. CONSENT GIVEN VERBALLY TO TWO NURSES. CONSENTS IN CHART.
[2018-07-19 12:07] VITALS: BP 128/69
--- NOTE | 2018-07-19 15:04 | NUR ---
Nutrition Follow Up: Chart reviewed. Pt continues NPO. Noted pt's niece has given consent to place PEG tube. No BM since admit Labs reviewed Meds noted including Procalamine @ 40 ml/hr providing 235 kcal, 28 g protein per day RD will continue to monitor pt progress and will make TF recs upon placement. RD following.
--- NOTE | 2018-07-19 15:19 | NUR ---
WOUND CARE CONSULT PROVIDED FOR BILATERAL HEELS. STATED WILL PUT IN ORDERS FOR DAILY DRSG CHANGES.
--- NOTE | 2018-07-19 15:26 | NUR ---
Pt has a healing Stage 2 pressure injury on right heel measuring 2cm x 2.5cm. Wound bed is pink and has no drainage or odor. Left heel has a healing stage 2 pressure injury measuring 7cm x 6cm. It presents as a dried intact blister. No drainage or odor noted. Recommended mepilex foam for protection. Pt is wearing his heel protectors.
--- NOTE | 2018-07-19 16:44 | NUR ---
REPORT GIVEN TO ALEJANDRO WISEMAN. PATIENT HANDED OFF.
[2018-07-19 17:06] VITALS: BP 136/67
--- NOTE | 2018-07-19 18:12 | NUR ---
PATIENT RESTING COMFORTABLY. NO SIGNS OF DISTRESS. ATTEMPTED TO CLEAN PATIENT'S FACE, EYES AND MOUTH. HE REFUSED. STATED, "I DON'T WANT NONE OF THAT." ALL NEEDS MET AT THIS TIME.
--- NOTE | 2018-07-19 19:00 | NUR ---
REPORT RECEIVED AND CARE OF PT ASSUMED. PT LYING IN LOW KOVACS'S POSITION WITH EYES CLOSED. IV IN RIGHT HAND PATENT WITH PROCAL INFUSING AT 40 ML/HR AND NS INFUSING AT 75 ML/HR. TELEMETRY IN PLACE AND READING [address] W/ PAC'S AT THIS ASSESSMENT. BED ALARM IN USE.
--- NOTE | 2018-07-19 19:40 | NUR ---
CHANGED ALL LINENS AND GOWN DUE TO INCONTINENCE EPISODE. POSITIONED ON RIGHT SIDE PROPPED WITH PILLOW PER TURN SCHEDULE.
[2018-07-19 20:00] VITALS: BP 146/74
--- NOTE | 2018-07-19 21:50 | NUR ---
HS MEDICATIONS GIVEN. HELD PO MEDICATIONS PER ORDER.
[2018-07-19 23:56] LABS: APPEARANCE CLEAR (CLEAR); BILIRUBIN NEGATIVE (NEGATIVE); COLOR YELLOW (YELLOW); GLUCOSE NEGATIVE (NEGATIVE); KETONE NEGATIVE (NEGATIVE); NITRITE NEGATIVE (NEGATIVE); PROTEIN TRACE mg/dL (NEGATIVE); RED CELLS - URINE 0-5 /hpf (0-5); UROBILINOGEN NORMAL (NORMAL); WHITE CELLS - URINE NSEEN /hpf (0-5)
[2018-07-20] VITALS: BP 150/74
[2018-07-20 04:00] VITALS: BP 127/84
--- NOTE | 2018-07-20 07:25 | NUR ---
PT RESTING IN BED, EYES OPEN. SPEECH GARBLED. PT BEDFAST, INCONTINENT OF BOWEL AND BLADDER. PT SCHEDULED FOR PEG PLACEMENT TODAY. PT ON TELEMETRY 95 SR WITH PVC'S. ON 5L O2, NC. IV TO RIGHT HAND, PROCAL INFUSING @ 40ML/HR AND NS INFUSING @ 75ML/HR. SITE PATENT WITHOUT REDNESS OR SWELLING. PT NPO TODAY. FALL PRECAUTIONS IN PLACE, JEWELS ALARM ON. PT DENIES ANYTHING FURTHER AT THIS TIME. CALL LIGHT IN REACH. WILL CONTINUE TO MONITOR.
[2018-07-20 09:01] VITALS: BP 114/63
[2018-07-20 10:03] LABS: BASOPHILS 0.1 % (0-2); EOSINOPHILS 0.7 % (0-7); HEMATOCRIT 31.4 % (42.0-54.0); HEMOGLOBIN 9.5 g/dL (13.5-17.5); IMMATURE GRANULOCYTES 0.4 % (0-5); LYMPHOCYTES 8.6 % (15-50); MCH 22.7 pg (26.0-34.0); MCHC 30.3 g/dL (31.0-37.0); MCV 75.1 fL (80.0-100.0); MEAN PLATELET VOLUME 9.6 fL (7.4-10.4); NEUTROPHILS 82.2 % (40-80); PLATELET COUNT 154 10x3/uL (130-400); RBC 4.18 10x6/uL (4.20-6.10); RDW 14.6 % (11.5-14.5)
[2018-07-20 10:10] LABS: WBC 13.4 10x3/uL (4.8-10.8)
[2018-07-20 10:26] LABS: CALC OSMOLALITY 290 mosm/kg (275-300); CALCIUM 8.1 mg/dL (8.5-10.1); CARBON DIOXIDE 28.3 mmol/L (21.0-32.0); CHLORIDE - SERUM 110 mmol/L (98-107); CREATININE - SERUM 0.6 mg/dL (0.6-1.3); GLUCOSE 90 mg/dL (74-106); POTASSIUM - SERUM 3.3 mmol/L (3.5-5.1); SODIUM 146 mmol/L (136-145); UREA NITROGEN 12 mg/dL (7-18); eGFR NON AFRICAN AMERICAN > 90 mL/min (90-120)
--- NOTE | 2018-07-20 10:40 | NUR ---
PT TAKEN TO SURGERY FOR PEG TUBE PLACEMENT VIA BED, ACCOMPANIED BY SURGICAL STAFF.
--- NOTE | 2018-07-20 12:50 | NUR ---
RECEIVED PT FROM GI LAB, PEG TUBE PLACEMENT. NO S/S OF ACUTE DISTRESS NOTED. NO C/O PAIN. WILL CONTINUE TO MONITOR.
--- NOTE | 2018-07-20 13:43 | NUR ---
NUTRITION F/U RECEIVED VERBAL ORDER TO START TUBE FEEDS. SURGERY OK WITH USING PEG AT 1700. ENTERED ORDERS AND NURSING MESSAGE. SPOKE WITH NURSE. MCKENNA FOLLOWING
--- NOTE | 2018-07-20 15:09 | MORECARE ---
CASE MANAGEMENT DISCHARGE SUMMARY PATIENT: GUNJAN ANNE UNIT: [id number] ADM DATE: 07/16/18 AGE: 73 : 44 SEX: M ROOM/BED: D.2227 AUTHOR: JOYADOC PHYSICIAN: REFERRING PHYSICIAN: KETTY WALTON MD DATE OF SERVICE: 07/20/18 Discharge Plan Patient Name: GUNJAN ANNE Facility: [facility]:[place] : 1945 Planned Disposition: Nursing Facility [facility] Cert Anticipated Discharge Date: Discharge Date: Expected LOS: Initial Reviewer: [email or web address] Initial Review Date: 07/18/2018 Generated: 07/20/18 4:08 pm DCP- Discharge Planning Updated by [email or web address]: Catrina Connell on 07/18/18 3:[address] Patient Name: GUNJAN ANNE Admission Status: ER Accout number: [id number] Admission Date: 07-16-2018 : 1945 Admission Diagnosis: Attending: KETTY WALTON Current LOS: 2 Anticipated DC Date: Planned Disposition: Nursing Facility [facility] Cert Primary Insurance: MEDICARE A & B Discharge Planning Comments: Patient is unable to communicate to complete discharge planning. I called his niece (Lore) to discuss discharge plan. Lore states he lives at [facility] ([facility]) and he will return there at discharge. States since he has had a blood clot in his leg, his condition has deteriorated. States he is completely dependent on the nursing staff at the custodial. CM will continue to follow and assist with discharge planning/needs. Roll Tender: Catrina Connell DCPIA - Discharge Planning Initial Assessment Updated by [id number]: Catrina Connell on 07/18/18 3:59 pm * Is the patient Alert and Oriented? No * How many steps to enter\exit or inside your home? 0/0 * Pharmacy [facility] provide all medications * Preadmission Environment [facility] * Facility Name [facility] ([facility]) * ADLs Total Dependent * Other Equipment All equipment provided by the custodial * List name and contact numbers for known caregivers / representatives who currently or will assist patient after discharge: Lore donato - [phone] Chao Gee nephcamryn - [phone] * Community resources currently utilized None * Additional services required to return to the preadmission environment? No * Can the patient safely return to the preadmission environment? Yes * Has this patient been hospitalized within the prior 30 days at any hospital? No External Providers External Provider: [facility] Next Contact Date: Service Request Date: Service Type: Resolution: Reviewer: Comments: Coverage Notice Reviewer: [id number] Marlen Connell Notice Issued Date-Time: 07/18/2018 16:03 Notice Type: Patient Choice Letter Notice Delivered To: Family Member Relationship to Patient: Niece Advanced Developer Name: Lore Blanco Delivery Method: PHONE - Phone Cierra Days: Prior Verbal Notification: Recipient Understood Notice: Yes Recipient Signature: Med Rec Note Co-signed by Attending: Coverage Notice Comment: RICHIE for [facility] ([facility]) Last DP export: 07/18/18 3:10 p Patient Name: GUNJAN ANNE Page [id number] at 1509 All edits/amendments must be made on the electronic document DICTATION DATE: 07/20/18 1508 CHRISTIAN SCIENCE PRACTITIONER: GEOFFREY 07/20/18 1508 RPT#: [id number] DC DATE: STATUS: ADM IN [facility] [address] [place] [address] END OF REPORT
--- NOTE | 2018-07-20 15:16 | MORECARE ---
CASE MANAGEMENT DISCHARGE SUMMARY PATIENT: GUNJAN ANNE UNIT: [id number] ADM DATE: 07/16/18 AGE: 73 : 44 SEX: M ROOM/BED: D.2227 AUTHOR: JOYA,DOC PHYSICIAN: REFERRING PHYSICIAN: KETTY WALTON MD DATE OF SERVICE: 07/20/18 Discharge Plan Patient Name: GUNJAN ANNE Facility: [facility]:[place] : 1945 Planned Disposition: Nursing Facility [facility] Cert Anticipated Discharge Date: Discharge Date: Expected LOS: Initial Reviewer: [email or web address] Initial Review Date: 07/18/2018 Generated: 07/20/18 4:16 pm Comments DCP- Discharge Planning Updated by [email or web address]: Catrina Connell on 07/20/18 2:[address] Donaldbeto Hancock states he anticipates discharge on Monday. [facility] and spoke with Maximiliano. Updated clinical faxed including tube feeding order. CM will continue to follow and assist with discharge planning/needs. DCP- Discharge Planning Updated by [id number]: Catrina Connell on 07/18/18 3:[address] Patient Name: GUNJAN ANNE Admission Status: ER Accout number: [id number] Admission Date: 07-16-2018 : 1945 Admission Diagnosis: Attending: KETTY WALTON Current LOS: 2 Anticipated DC Date: Planned Disposition: Nursing Facility [facility] Cert Primary Insurance: MEDICARE A & B Discharge Planning Comments: Patient is unable to communicate to complete discharge planning. I called his niece (Lore) to discuss discharge plan. Lore states he lives at [facility] ([facility]) and he will return there at discharge. States since he has had a blood clot in his leg, his condition has deteriorated. States he is completely dependent on the nursing staff at the fpc. CM will continue to follow and assist with discharge planning/needs. Peanut Butter Maker: Catrina Connell DCPIA - Discharge Planning Initial Assessment Updated by [id number]: Catrina Connell on 07/18/18 3:59 pm * Is the patient Alert and Oriented? No * How many steps to enter\exit or inside your home? 0/0 * Pharmacy [facility] provide all medications * Preadmission Environment Nursing Home [facility] * Facility Name [facility] ([facility]) * ADLs Total Dependent * Other Equipment All equipment provided by the fpc * List name and contact numbers for known caregivers / representatives who currently or will assist patient after discharge: Lore Blanco - tanmay - [phone] Chao Gee nephew - [phone] * Community resources currently utilized None * Additional services required to return to the preadmission environment? No * Can the patient safely return to the preadmission environment? Yes * Has this patient been hospitalized within the prior 30 days at any hospital? No Coverage Notice Reviewer: [email or web address] Marlen Connell Notice Issued Date-Time: 07/18/2018 16:03 Notice Type: Patient Choice Letter Notice Delivered To: Family Member Relationship to Patient: Niece Steam Drier Operator Name: Lore Blanco Delivery Method: PHONE - Phone Cierra Days: Prior Verbal Notification: Recipient Understood Notice: Yes Recipient Signature: Med Rec Note Co-signed by Attending: Coverage Notice Comment: RICHIE for [facility] ([facility]) Last DP export: 07/20/18 2:09 p Patient Name: GUNJAN ANNE Page [id number] at 1516 All edits/amendments must be made on the electronic document DICTATION DATE: 07/20/181514 PARENT COACH: GEOFFREY 07/20/181514 RPT#: [id number] DC DATE: STATUS: ADM IN [facility] [address] [place] [address] END OF REPORT
[2018-07-20 17:23] VITALS: BP 119/56
--- NOTE | 2018-07-20 18:05 | NUR ---
I have reviewed this patient and I concur with the Shift Assessment completed by the Licensed Practical Nurse today this shift.
--- NOTE | 2018-07-20 18:29 | NUR ---
PT RESTING IN BED, EYES CLOSED. NO C/O PAIN. NO S/S OF ACUTE DISTRESS NOTED. PT IV INFILTRATED, UNABLE TO RESITE WILL PASS ON TO NEXT SHIFT. PT DENIES ANYTHING FURTHER AT THIS TIME. CALL LIGHT IN REACH. WILL CONTINUE TO MONITOR.
--- NOTE | 2018-07-20 19:00 | NUR ---
REPORT RECEIVED AND CARE OF PT ASSUMED. PT LYING IN HIGH KOVACS'S POSITION WITH EYES CLOSED. HE HAS A COUGH EVERY FEW MINUTES...MAKING SURE PT IS AT 30 DEGREES AT ALL TIMES. PEG TUBE PATENT WITH JEVITY 1.2 INFUSING AT 20 ML / HR VIA FEEDING PUMP. NO IV AT THIS TIME...RECEIVED IN REPORT UNABLE TO RE-SITE...WILL TRY TO START IV TONIGHT.
[2018-07-20 20:00] VITALS: BP 95/53
--- NOTE | 2018-07-20 21:46 | NUR ---
HS MEDICATIONS GIVEN VIA PEG TUBE. HELD IV ZOSYN NO IV AT THIS TIME.
[2018-07-21] VITALS: BP 104/39
--- NOTE | 2018-07-21 00:15 | NUR ---
PT O2 SATS DROPPED TO 80%. CALLED RT AND PT NOW ON 7L HIGH FLOW NASAL CANNULA. CONTINUOUS PULSE OX PLACED FOR MONITORING. STILL WITH PRODUCTIVE COUGH.
--- NOTE | 2018-07-21 01:22 | NUR ---
SEVERAL ATTEMPS TO PLACE IV BY SEVERAL NURSES UNSUCCESSFUL. ORDER PLACED FOR VASCULAR ACCESS NURSE CONSULT FOR POSSIBLE MIDLINE PLACEMENT.
--- NOTE | 2018-07-21 01:24 | NUR ---
INCREASED FEEDING TO 30 ML / HR PER ORDER. PT BEING KEPT WITH HOB AT 30 DEGREES. STILL WITH PRODUCTIVE COUGH.
[2018-07-21 04:00] VITALS: BP 95/56
--- NOTE | 2018-07-21 07:30 | NUR ---
PT RESTING IN BED, EYES CLOSED. RESPIRATIONS EVEN AND UNLABORED. NO C/O PAIN. NO S/S OF ACUTE DISTRESS NOTED. PT ON 7L HIGHFLOW NC. TELEMETRY SR 86. NO IV AT THIS TIME. UNABLE TO GAIN ACCESS. JEVITY 1.2 @ 30ML/HR. PT HAS A PRODUCTIVE COUGH. PT DENIES ANYTHING FURTHER AT THIS TIME. CALL LIGHT IN REACH. WILL CONTINUE TO MONITOR.
[2018-07-21 08:42] VITALS: BP 104/59
--- NOTE | 2018-07-21 11:03 | NUR ---
I have reviewed this patient and I concur with the Shift Assessment completed by the Licensed Practical Nurse today this shift.
--- NOTE | 2018-07-21 12:12 | NUR ---
PT SATURATION @ 100% ON 7L HIGHFLOW, TITRATED DOWN TO 5L HIGHFLOW.
--- NOTE | 2018-07-21 13:53 | NUR ---
PATIENT SATURATION @ 100% ON 5L. TITRATED DOWN TO 3L. NO S/S OF ACUTE DISTRESS NOTED. CALL LIGHT IN REACH. WILL CONTINUE TO MONITOR.
[2018-07-21 14:31] VITALS: BP 110/66
[2018-07-21 15:23] LABS: BASOPHILS 0.3 % (0-2); EOSINOPHILS 0.7 % (0-7); HEMATOCRIT 27.5 % (42.0-54.0); HEMOGLOBIN 8.4 g/dL (13.5-17.5); MCHC 30.5 g/dL (31.0-37.0); MCV 75.1 fL (80.0-100.0); MEAN PLATELET VOLUME 9.5 fL (7.4-10.4); MONOCYTES 15.9 % (2-11); NEUTROPHILS 67.1 % (40-80); PLATELET COUNT 139 10x3/uL (130-400); RBC 3.66 10x6/uL (4.20-6.10); RDW 14.6 % (11.5-14.5); WBC 11.7 10x3/uL (4.8-10.8)
[2018-07-21 16:02] LABS: CARBON DIOXIDE 29.8 mmol/L (21.0-32.0); CHLORIDE - SERUM 110 mmol/L (98-107); CREATININE - SERUM 0.6 mg/dL (0.6-1.3); POTASSIUM - SERUM 3.5 mmol/L (3.5-5.1); SODIUM 147 mmol/L (136-145); eGFR NON AFRICAN AMERICAN > 90 mL/min (90-120)
[2018-07-21 16:03] LABS: CALC OSMOLALITY 296 mosm/kg (275-300); GLUCOSE 139 mg/dL (74-106); UREA NITROGEN 20 mg/dL (7-18)
[2018-07-21 16:46] VITALS: BP 122/63
--- NOTE | 2018-07-21 16:49 | NUR ---
INCREASED JEVITY 1.2 FROM 40ML/HR TO 50ML/HR PER PHYSICIAN'S ORDER.
--- NOTE | 2018-07-21 18:57 | NUR ---
PT RESTING IN BED. NO C/O PAIN. NO S/S OF ACUTE DISTRESS NOTED. CALL LIGHT IN REACH. WILL CONTINUE TO MONITOR.
--- NOTE | 2018-07-21 19:00 | NUR ---
REPORT RECEIVED AND CARE OF PT ASSUMED. PT LYING IN HIGH KOVACS'S POSITION WITH EYES CLOSED. O2 IN USE VIA HIGH FLOW NC AT 3L. PEG TUBE PATENT WITH JEVITY 1.2 INFUSING AT 50 ML / HR. WILL MONITOR FOR NEEDS.
[2018-07-21 20:00] VITALS: BP 97/49
--- NOTE | 2018-07-21 20:30 | NUR ---
PT'Renetta ADAME CALLED FOR UPDATE.
--- NOTE | 2018-07-21 20:48 | NUR ---
HS MEDICATIONS GIVEN VIA PEG TUBE WITH 60 CC FLUSH BEFORE AND AFTER. CHANGED FEEDING BAGS AND TUBING. PT TURNED PER TURN SCHEDULE. WILL MONITOR FOR NEEDS.
[2018-07-22] VITALS (7 sets, daily range): BP systolic 99–122; BP diastolic 48–73
--- NOTE | 2018-07-22 01:00 | NUR ---
INCREASED TUBE FEEDING TO 60 ML/HR PER SCHEDULE TO INCREASE BY 10 ML/HR EVERY 8 HOURS TO GOAL OF 70 ML/HR.
[2018-07-22 05:52] LABS: BASOPHILS 0.1 % (0-2); EOSINOPHILS 1.5 % (0-7); HEMATOCRIT 25.6 % (42.0-54.0); HEMOGLOBIN 7.8 g/dL (13.5-17.5); IMMATURE GRANULOCYTES 1.8 % (0-5); LYMPHOCYTES 14.7 % (15-50); MCH 22.9 pg (26.0-34.0); MCHC 30.5 g/dL (31.0-37.0); MCV 75.3 fL (80.0-100.0); MEAN PLATELET VOLUME 9.9 fL (7.4-10.4); MONOCYTES 11.6 % (2-11); NEUTROPHILS 70.3 % (40-80); PLATELET COUNT 146 10x3/uL (130-400); RDW 14.6 % (11.5-14.5); WBC 11.4 10x3/uL (4.8-10.8)
[2018-07-22 06:02] LABS: CALC OSMOLALITY 295 mosm/kg (275-300); CALCIUM 8.2 mg/dL (8.5-10.1); CARBON DIOXIDE 31.6 mmol/L (21.0-32.0); CHLORIDE - SERUM 108 mmol/L (98-107); CREATININE - SERUM 0.6 mg/dL (0.6-1.3); GLUCOSE 151 mg/dL (74-106); POTASSIUM - SERUM 3.5 mmol/L (3.5-5.1); SODIUM 146 mmol/L (136-145); UREA NITROGEN 18 mg/dL (7-18); eGFR NON AFRICAN AMERICAN > 90 mL/min (90-120)
--- NOTE | 2018-07-22 18:09 | NUR ---
I have reviewed this patient and I concur with the Shift Assessment completed by the Licensed Practical Nurse today this shift.
--- NOTE | 2018-07-22 19:00 | NUR ---
REPORT RECEIVED AND CARE OF PT ASSUMED. PT LYING IN HIGH KOVACS'S POSITION WITH EYES CLOSED AND UNLABORED BREATHING. OW IN USE AT 4L VIA HI FLOW NC. CONTINUOUS PULSE OX IN USE. PEG TUBE PATENT WITH JEVITY 1.2 INFUSING AT 70 ML / HR. HEEL PROTECTORS IN PLACE ON BLE. WILL MONITOR FOR NEEDS.
--- NOTE | 2018-07-22 20:26 | NUR ---
HS MEDICATIONS GIVEN VIA PEG TUBE...FLUSHED WITH 60 ML WATER BEFORE AND AFTER MEDS.
--- NOTE | 2018-07-22 21:15 | NUR ---
PT BATHED AND ALL LINENS AND GOWN CHANGED DUE TO INCONTINENCE...HAD VERY LARGE BM.
--- NOTE | 2018-07-23 01:15 | NUR ---
PT HAD LARGE LIQUID STOOL FROM HIS WAIST TO HIS FEET. ALL BEDDING AND GOWN CHANGED AND PT BATHED. POSITIONED FOR COMFORT, AND AT 30 DEGREES, AND TURNED TO LEFT SIDE PER TURN SCHEDULE.
--- NOTE | 2018-07-23 01:30 | NUR ---
ALL FEEDING BAGS AND TUBING CHANGED. TUBE FEEDINGS RE-STARTED AT 70 ML/HR. BAGS DATED AND TIMED.
--- NOTE | 2018-07-23 02:08 | NUR ---
CHANGED DRESSINGS ON BILATERAL HEELS. APPLIED MEPILEX FOAM DRESSING ON HEELS AND COVERED WITH GRIPPER SOCKS. FOAM HEEL PROTECTORS RE-PLACED. DRESSING DATED AND INITIALED.
[2018-07-23 04:00] VITALS: BP 86/48
--- NOTE | 2018-07-23 06:22 | NUR ---
PT CHANGED AND CLEANED DUE TO INCONTINENCE OF STOOL AND URINE. BM VERY LOOSE.
[2018-07-23 06:35] LABS: CALC OSMOLALITY 300 mosm/kg (275-300); CALCIUM 8.1 mg/dL (8.5-10.1); CARBON DIOXIDE 30.7 mmol/L (21.0-32.0); CHLORIDE - SERUM 112 mmol/L (98-107); CREATININE - SERUM 0.6 mg/dL (0.6-1.3); GLUCOSE 148 mg/dL (74-106); SODIUM 149 mmol/L (136-145); UREA NITROGEN 18 mg/dL (7-18); eGFR NON AFRICAN AMERICAN > 90 mL/min (90-120)
[2018-07-23 06:37] LABS: POTASSIUM - SERUM 4.1 mmol/L (3.5-5.1)
[2018-07-23 07:12] LABS: BASOPHILS 0.1 % (0-2); EOSINOPHILS 1.6 % (0-7); HEMATOCRIT 21.5 % (42.0-54.0); IMMATURE GRANULOCYTES 3.3 % (0-5); LYMPHOCYTES 14.6 % (15-50); MCH 22.2 pg (26.0-34.0); MCHC 29.3 g/dL (31.0-37.0); MCV 75.7 fL (80.0-100.0); MEAN PLATELET VOLUME 10.2 fL (7.4-10.4); MONOCYTES 10.4 % (2-11); PLATELET COUNT 161 10x3/uL (130-400); RBC 2.84 10x6/uL (4.20-6.10); RDW 14.6 % (11.5-14.5)
[2018-07-23 07:14] LABS: HEMOGLOBIN 6.3 g/dL (13.5-17.5); WBC 14.4 10x3/uL (4.8-10.8)
[2018-07-23 09:15] VITALS: BP 120/81
--- NOTE | 2018-07-23 13:39 | NUR ---
NUTRITION F/U PT TOLERATING JEVITY 1.2 @ GOAL RATE 70 CC/HR. PROCALAMINE DC'D. WILL CONTINUE TO MONITOR. RD FOLLOWING
--- NOTE | 2018-07-23 15:10 | NUR ---
PT RESTING IN BED. NO SIGNS OF DISTRESS. IV TO RIGHT HAND PATENT NO REDNESS OR TENDERNESS. ON 2L NC. HAS PEG TUBE PATENT. DENIES ANY FURTHER NEED AT THIS TIME. CALL LIGHT IN REACH. BED LOW POSITION. NO FAMILY AT BEDSIDE AT THIS TIME.
[2018-07-23 18:29] VITALS: BP 112/64
--- NOTE | 2018-07-23 23:03 | NUR ---
I have reviewed this patient and I concur with the Shift Assessment completed by the Licensed Practical Nurse today this shift.
[2018-07-24] VITALS: BP 105/49
[2018-07-24 04:30] VITALS: BP 119/58
[2018-07-24 05:21] LABS: BASOPHILS 0.1 % (0-2); EOSINOPHILS 2.6 % (0-7); IMMATURE GRANULOCYTES 4.5 % (0-5); LYMPHOCYTES 11.1 % (15-50); MCH 24.9 pg (26.0-34.0); MCHC 32.1 g/dL (31.0-37.0); MCV 77.6 fL (80.0-100.0); MEAN PLATELET VOLUME 9.9 fL (7.4-10.4); MONOCYTES 8.4 % (2-11); NEUTROPHILS 73.3 % (40-80); RDW 15.1 % (11.5-14.5)
[2018-07-24 05:35] LABS: CALC OSMOLALITY 296 mosm/kg (275-300); CALCIUM 8.2 mg/dL (8.5-10.1); CARBON DIOXIDE 31.4 mmol/L (21.0-32.0); CHLORIDE - SERUM 112 mmol/L (98-107); CREATININE - SERUM 0.5 mg/dL (0.6-1.3); GLUCOSE 117 mg/dL (74-106); POTASSIUM - SERUM 4.1 mmol/L (3.5-5.1); SODIUM 148 mmol/L (136-145); UREA NITROGEN 17 mg/dL (7-18); eGFR NON AFRICAN AMERICAN > 90 mL/min (90-120)
[2018-07-24 06:30] LABS: HEMATOCRIT 27.4 % (42.0-54.0); HEMOGLOBIN 8.8 g/dL (13.5-17.5); PLATELET COUNT 197 10x3/uL (130-400); RBC 3.53 10x6/uL (4.20-6.10); WBC 19.1 10x3/uL (4.8-10.8)
[2018-07-24 07:00] VITALS: BP 103/65
--- NOTE | 2018-07-24 07:25 | NUR ---
PT RESTING EYES CLOSED EASY RISE AND FALL OF CHEST CL IN REACH WILL CONTINUE TO MONITOR
[2018-07-24 11:00] VITALS: BP 112/55
[2018-07-24 17:11] VITALS: BP 112/49
--- NOTE | 2018-07-24 18:45 | NUR ---
I have reviewed this patient and I concur with the Shift Assessment completed by the Licensed Practical Nurse today this shift.
[2018-07-24 20:00] VITALS: BP 121/56
--- NOTE | 2018-07-24 20:30 | NUR ---
LYING QUIELTY WITH NO DISTRESS NOTED. IV INFUSING TO RIGHT HAND WITHOUT REDNESS OR EDEMA NOTED. PEG TUBE PATENT WITH JEVITY INFUSING @ 70 CC/HE. TURNED AND POSITIONED FOR COMFORT. CL IN REACH
[2018-07-25] VITALS: BP 118/60
[2018-07-25 04:00] VITALS: BP 92/60
--- NOTE | 2018-07-25 04:22 | NUR ---
I have reviewed this patient and I concur with the Shift Assessment completed by the Licensed Practical Nurse today this shift.
[2018-07-25 06:57] LABS: CALCIUM 7.4 mg/dL (8.5-10.1); CARBON DIOXIDE 27.2 mmol/L (21.0-32.0); CREATININE - SERUM 0.4 mg/dL (0.6-1.3); GLUCOSE 132 mg/dL (74-106); UREA NITROGEN 14 mg/dL (7-18); eGFR NON AFRICAN AMERICAN > 90 mL/min (90-120)
[2018-07-25 07:52] LABS: CALC OSMOLALITY 283 mosm/kg (275-300); CHLORIDE - SERUM 106 mmol/L (98-107); HEMATOCRIT 29.1 % (42.0-54.0); HEMOGLOBIN 8.9 g/dL (13.5-17.5); MCH 24.5 pg (26.0-34.0); MCHC 30.6 g/dL (31.0-37.0); MCV 79.9 fL (80.0-100.0); MEAN PLATELET VOLUME 10.3 fL (7.4-10.4); PLATELET COUNT 200 10x3/uL (130-400); POTASSIUM - SERUM 5.3 mmol/L (3.5-5.1); RBC 3.64 10x6/uL (4.20-6.10); RDW 16.5 % (11.5-14.5); SODIUM 141 mmol/L (136-145); WBC 21.5 10x3/uL (4.8-10.8)
--- NOTE | 2018-07-25 08:25 | NUR ---
PT RESTING IN BED TALKING OUT TO SELF. RESP EVEN AND UNLABORED. INCONTINENT CARE PROVIDED, TURNED TO RIGHT SIDE. IV TO RIGHT HAND WITH D5W @ 75ML/HR INFUSING VIA PUMP. SITE WITHOUT REDNESS OR EDEMA. G TUBE IN PLACE, WITH JEVITY 1.2 @ 70ML/HR INFUSING VIA PUMP. NO RESIDUAL NOTED. MEDICATIONS ADMINISTERED PER G TUBE AT THIS TIME. CL WITHIN REACH. CONTINUE POC
[2018-07-25 08:54] VITALS: BP 109/48
[2018-07-25 08:55] LABS: VALPROIC ACID (DEPAKOTE) 45.2 ug/mL (50.0-100.0); VANCOMYCIN - TROUGH 6.2 ug/mL (10.0-20.0)
[2018-07-25 09:06] LABS: LYMPHOCYTES 23 % (15-50); MONOCYTES 17 % (2-11); NEUTROPHILS 59 % (40-80); PLATELET ESTIMATE NORMAL
--- NOTE | 2018-07-25 10:30 | NUR ---
PT PULLED IV OUT FROM RIGHT HAND. CATH INTACT. IV RESITED TO LEFT FOREARM X 1 STICK. PT DIANA WELL
--- NOTE | 2018-07-25 12:04 | MORECARE ---
CASE MANAGEMENT DISCHARGE SUMMARY PATIENT: GUNJAN ANNE UNIT: [id number] ADM DATE: 07/16/18 AGE: 73 : 44 SEX: M ROOM/BED: D.2227 AUTHOR: JOYA,DOC PHYSICIAN: REFERRING PHYSICIAN: KETTY WALTON MD DATE OF SERVICE: 07/25/18 Discharge Plan Patient Name: GUNJAN ANNE Facility: [facility]:[place] : 1945 Planned Disposition: Nursing Facility [facility] Cert Anticipated Discharge Date: Discharge Date: Expected LOS: Initial Reviewer: [email or web address] Initial Review Date: 07/18/2018 Generated: 07/25/18 1:04 pm DCP- Discharge Planning Updated by [email or web address]: Catrina Connell on 07/20/18 2:[address] Donald Modishears states he anticipates discharge on Monday. I called [facility] and spoke with Maximiliano. Updated clinical faxed including tube feeding order. CM will continue to follow and assist with discharge planning/needs. DCP- Discharge Planning Updated by [email or web address]: Catrina Connell on 07/18/18 3:[address] Patient Name: GUNJAN ANNE Admission Status: ER Accout number: [id number] Admission Date: 07-16-2018 : 1945 Admission Diagnosis: Attending: KETTY WALTON Current LOS: 2 Anticipated DC Date: Planned Disposition: Nursing Facility [facility] Cert Primary Insurance: MEDICARE A & B Discharge Planning Comments: Patient is unable to communicate to complete discharge planning. I called his niece (Lore) to discuss discharge plan. Lore states he lives at [facility] ([facility] and he will return there at discharge. States since he has had a blood clot in his leg, his condition has deteriorated. States he is completely dependent on the nursing staff at the assisted. CM will continue to follow and assist with discharge planning/needs. Parking Cashier: Catrina Connell DCPIA - Discharge Planning Initial Assessment Updated by [email or web address]: Catrina Connell on 07/18/18 3:59 pm * Is the patient Alert and Oriented? No * How many steps to enter\exit or inside your home? 0/0 * [facility] provide [facility] * Preadmission Environment Insurance Follow Up Special[facility] * Facility Name [facility] ([facility]) * ADLs Total Dependent * Other Equipment All equipment provided by the assisted * List name and contact numbers for known caregivers / representatives who currently or will assist patient after discharge: Lore Blanco - tanmay - [phone] Chao Gee nephcamryn - [phone] * Community resources currently utilized None * Additional services required to return to the preadmission environment? No * Can the patient safely return to the preadmission environment? Yes * Has this patient been hospitalized within the prior 30 days at any hospital? No External Providers External Provider: [facility](provides inp Next Contact Date: Service Request Date: Service Type: Resolution: Reviewer: Comments: Coverage Notice Reviewer: [email or web address] Marlen Connell Notice Issued Date-Time: 07/18/2018 16:03 Notice Type: Patient Choice Letter Notice Delivered To: Family Member Relationship to Patient: Niece Department Clerk Name: Lore Blanco Delivery Method: PHONE - Phone Cierra Days: Prior Verbal Notification: Recipient Understood Notice: Yes Recipient Signature: Med Rec Note Co-signed by Attending: Coverage Notice Comment: RICHIE for [facility] ([facility]) Last DP export: 07/20/18 2:16 p Patient Name: GUNJAN ANNE Page [phone] at 1204 All edits/amendments must be made on the electronic document DICTATION DATE: 07/25/18 1204 FAMILY MANAGER: GEOFFREY 07/25/18 1204 RPT#: [id number] DC DATE: STATUS: ADM IN [facility] [address] [place] [address] END OF REPORT
--- NOTE | 2018-07-25 12:12 | MORECARE ---
CASE MANAGEMENT DISCHARGE SUMMARY PATIENT: GUNJAN ANNE UNIT: [id number] ADM DATE: 07/16/18 AGE: 73 : 44 SEX: M ROOM/BED: D.2227 AUTHOR: GINA HINSON PHYSICIAN: REFERRING PHYSICIAN: KETTY WALTON MD DATE OF SERVICE: 07/25/18 Discharge Plan Patient Name: GUNJAN ANNE Facility: [facility]:[place] : 1945 Planned Disposition: Nursing Facility [facility] Cert Anticipated Discharge Date: Discharge Date: Expected LOS: Initial Reviewer: [email or web address] Initial Review Date: 07/18/2018 Generated: 07/25/18 1:12 pm Comments DCP- Discharge Planning Updated by [email or web address]: Catrina Becki on 07/25/18 11:[address] Received an order for hospice consult. I called patient's niece (Lore) and discussed different agencies. She would like him to stay at [facility] if possible. RICHIE for [facility]. She would like them to call her after they see the patient. She states she lives in [place] and it would be difficult for her to travel. I called Wade with [facility] and he will call his niece after review, clinical faxed. CM will continue to follow and assist with discharge planning/needs. DCP- Discharge Planning Updated by [email or web address]: Catrina Connell on 07/20/18 2:[address] Donald Hancock states he anticipates discharge on Monday. I called [facility] and spoke with Maximiliano. Updated clinical faxed including tube feeding order. CM will continue to follow and assist with discharge planning/needs. DCP- Discharge Planning Updated by [id number]: Catrina Becki on 07/18/18 3:[address] Patient Name: GUNJAN ANNE Admission Status: ER Accout number: [id number] Admission Date: 07-16-2018 : 1945 Admission Diagnosis: Attending: KETTY WALTON Current LOS: 2 Anticipated DC Date: Planned Disposition: Nursing Facility [facility] Cert Primary Insurance: MEDICARE A & B Discharge Planning Comments: Patient is unable to communicate to complete discharge planning. I called his niece (Lore) to discuss discharge plan. Lore states he lives at [facility] ([facility]) and he will return there at discharge. States since he has had a blood clot in his leg, his condition has deteriorated. States he is completely dependent on the nursing staff at the assisted. CM will continue to follow and assist with discharge planning/needs. Brush Clearer Surveying: Catrina Connell DCPIA - Discharge Planning Initial Assessment Updated by [id number]: Catrina Connell on 07/18/18 3:59 pm * Is the patient Alert and Oriented? No * How many steps to enter\exit or inside your home? 0/0 * [facility] provide [facility] medications * Preadmission Environment [facility] * [facility] * ADLs Total Dependent * Other Equipment All equipment provided by the assisted * List name and contact numbers for known caregivers / representatives who currently or will assist patient after discharge: Lore donato - [phone] Chao Nayeli schwarz [phone] * Community resources currently utilized None * Additional services required to return to the preadmission environment? No * Can the patient safely return to the preadmission environment? Yes * Has this patient been hospitalized within the prior 30 days at any hospital? No Coverage Notice Reviewer: [id number] Marlen Connell Notice Issued Date-Time: 07/18/2018 16:03 Notice Type: Patient Choice Letter Notice Delivered To: Family Member Relationship to Patient: Niece Cable Weaver Name: Lore Blanco Delivery Method: PHONE - Phone Cierra Days: Prior Verbal Notification: Recipient Understood Notice: Yes Recipient Signature: Med Rec Note Co-signed by Attending: Coverage Notice Comment: RICHIE for [facility] ([facility]) Reviewer: [email or web address] Marlen Connell Notice Issued Date-Time: 07/25/2018 12:06 Notice Type: Patient Choice Letter Notice Delivered To: Family Member Relationship to Patient: Niece Cable Weaver Name: Lore Blanco Delivery Method: PHONE - Phone Cierra Days: Prior Verbal Notification: Recipient Understood Notice: Yes Recipient Signature: Med Rec Note Co-signed by Attending: Coverage Notice Comment: RICHIE for [facility] Last DP export: 07/25/18 11:04 am Patient Name: OMIDGUNJAN DIOP Page [phone] at 1212 All edits/amendments must be made on the electronic document DICTATION DATE: 07/25/181210 CHEMISTRY SPECIALIST: GEOFFREY 07/25/181210 RPT#: [id number] DC DATE: STATUS: ADM IN [facility] [address] [place] [address] END OF REPORT
[2018-07-25 12:43] VITALS: BP 165/78
[2018-07-25 17:05] VITALS: BP 148/77
[2018-07-25 20:00] VITALS: BP 110/62
--- NOTE | 2018-07-25 20:00 | NUR ---
RESTING QUEITLY WITH NO DISTRESS NOTED. PEG TUBE PATENT WITH JEVITY INFUSING AT 70 CC/HR. TOLERATING WELL. TURNED AND POSITIONED FOR COMFORT.
[2018-07-26 03:15] VITALS: BP 116/51
[2018-07-26 04:00] VITALS: BP 120/70
--- NOTE | 2018-07-26 04:52 | NUR ---
I have reviewed this patient and I concur with the Shift Assessment completed by the Licensed Practical Nurse today this shift.
[2018-07-26 05:15] LABS: BASOPHILS 0.1 % (0-2); EOSINOPHILS 0.9 % (0-7); HEMATOCRIT 25.8 % (42.0-54.0); HEMOGLOBIN 8.1 g/dL (13.5-17.5); IMMATURE GRANULOCYTES 3.2 % (0-5); LYMPHOCYTES 7.5 % (15-50); MCH 24.7 pg (26.0-34.0); MCHC 31.4 g/dL (31.0-37.0); MCV 78.7 fL (80.0-100.0); MEAN PLATELET VOLUME 9.4 fL (7.4-10.4); MONOCYTES 8.2 % (2-11); NEUTROPHILS 80.1 % (40-80); PLATELET COUNT 226 10x3/uL (130-400); RBC 3.28 10x6/uL (4.20-6.10); WBC 21.3 10x3/uL (4.8-10.8)
[2018-07-26 05:25] LABS: CALC OSMOLALITY 285 mosm/kg (275-300); CARBON DIOXIDE 29.5 mmol/L (21.0-32.0); CHLORIDE - SERUM 106 mmol/L (98-107); CREATININE - SERUM 0.5 mg/dL (0.6-1.3); GLUCOSE 141 mg/dL (74-106); SODIUM 142 mmol/L (136-145); UREA NITROGEN 15 mg/dL (7-18); eGFR NON AFRICAN AMERICAN > 90 mL/min (90-120)
[2018-07-26 05:26] LABS: POTASSIUM - SERUM 4.5 mmol/L (3.5-5.1)
[2018-07-26] MEDS ORDERED: ATIVAN1 MG PO (08:41)
[2018-07-26 09:29] VITALS: BP 108/61
--- NOTE | 2018-07-26 11:46 | MORECARE ---
CASE MANAGEMENT DISCHARGE SUMMARY PATIENT: GUNJAN ANNE UNIT: [id number] ADM DATE: 07/16/18 AGE: 73 : 44 SEX: M ROOM/BED: D.2227 AUTHOR: GINA HINSON PHYSICIAN: REFERRING PHYSICIAN: KETTY WALTON MD DATE OF SERVICE: 07/26/18 Discharge Plan Patient Name: GUNJAN ANNE Facility: [facility]:[place] : 1945 Planned Disposition: Nursing Facility SAY Cert Anticipated Discharge Date: Discharge Date: Expected LOS: Initial Reviewer: [email or web address] Initial Review Date: 07/18/2018 Generated: 07/26/18 12:46 pm Comments DCP- Discharge Planning Updated by [email or web address]: Catrina Connell on 07/26/18 10:[address] Received order for discharge. I called and spoke to Wade with [facility]. Wade states they have not had anyone to sign his admission papers yet for hospice, they will call me when they do. I called and spoke to Jeny (medical practice assistant of [facility]), she states that usually Dr. Walton signs off on the patient's needs because his sister is not able to. I spoke with Donald Hancock and he states to hold on discharge until he can admit with hospice. CM will continue to follow and assist with discharge planning/needs. Yenny Guaman - sister - [phone] or [phone] DCP- Discharge Planning Updated by [id number]: Catrina Connell on 07/25/18 11:[address] Received an order for hospice consult. I called patient's niece (Lore) and discussed different agencies. She would like him to stay at [facility] if possible. RICHIE for [facility]. She would like them to call her after they see the patient. She states she lives in [place] and it would be difficult for her to travel. I called Wade with [facility] and he will call his niece after review, clinical faxed. CM will continue to follow and assist with discharge planning/needs. DCP- Discharge Planning Updated by [email or web address]: Catrina Connell on 07/20/18 2:[address] Donald Hancock states he anticipates discharge on Monday. I called [facility] and spoke with Maximiliano. Updated clinical faxed including tube feeding order. CM will continue to follow and assist with discharge planning/needs. DCP- Discharge Planning Updated by [email or web address]: Catrina Connell on 07/18/18 3:[address] Patient Name: GUNJAN ANNE Admission Status: ER Accout number: [id number] Admission Date: 07-16-2018 : 1945 Admission Diagnosis: Attending: KETTY WALTON Current LOS: 2 Anticipated DC Date: Planned Disposition: Nursing Facility [facility] Primary Insurance: MEDICARE A & B Discharge Planning Comments: Patient is unable to communicate to complete discharge planning. I called his niece (Lore) to discuss discharge plan. Lore states he lives at [facility]) and he will return there at discharge. States since he has had a blood clot in his leg, his condition has deteriorated. States he is completely dependent on the nursing staff at the alf. CM will continue to follow and assist with discharge planning/needs. Powerhouse Electrician Apprentice: Catrina Connell DCPIA - Discharge Planning Initial Assessment Updated by [email or web address]: Catrina Connell on 07/18/18 3:59 pm * Is the patient Alert and Oriented? No * How many steps to enter\exit or inside your home? 0/0 * [facility] * [facility]readmission [facility] * Facility Name [facility] ([facility]) * ADLs Total Dependent * Other Equipment All equipment provided by the alf * List name and contact numbers for known caregivers / representatives who currently or will assist patient after discharge: Lore donato - [phone] Chao Nayeli Gee nephew - [phone] * Community resources currently utilized None * Additional services required to return to the preadmission environment? No * Can the patient safely return to the preadmission environment? Yes * Has this patient been hospitalized within the prior 30 days at any hospital? No Coverage Notice Reviewer: [id number] - Catrina Connell Notice Issued Date-Time: 07/18/2018 16:03 Notice Type: Patient Choice Letter Notice Delivered To: Family Member Relationship to Patient: Niece Taxation Consultant Name: Lore Blanco Delivery Method: PHONE - Phone Cierra Days: Prior Verbal Notification: Recipient Understood Notice: Yes Recipient Signature: Med Rec Note Co-signed by Attending: Coverage Notice Comment: RICHIE for [facility] ([facility]) Reviewer: [email or web address] Marlen Connell Notice Issued Date-Time: 07/25/2018 12:06 Notice Type: Patient Choice Letter Notice Delivered To: Family Member Relationship to Patient: Niece Taxation Consultant Name: Lore Blanco Delivery Method: PHONE - Phone Cierra Days: Prior Verbal Notification: Recipient Understood Notice: Yes Recipient Signature: Med Rec Note Co-signed by Attending: Coverage Notice Comment: RICHIE for [facility] Last DP export: 07/25/18 11:12 am Patient Name: GUNJAN ANNE Page 38988 at 1146 All edits/amendments must be made on the electronic document DICTATION DATE: 07/26/18 1146 GLAZE MAKER: GEOFFREY 07/26/18 1146 RPT#: [id number] DC DATE: STATUS: ADM IN [facility] [address] [place] [address] END OF REPORT
[2018-07-26 13:35] VITALS: BP 148/73
[2018-07-26 16:01] LABS: APPEARANCE CLEAR (CLEAR); BILIRUBIN NEGATIVE (NEGATIVE); COLOR YELLOW (YELLOW); GLUCOSE NEGATIVE (NEGATIVE); KETONE NEGATIVE (NEGATIVE); NITRITE NEGATIVE (NEGATIVE); PROTEIN NEGATIVE (NEGATIVE); UROBILINOGEN NORMAL (NORMAL)
--- NOTE | 2018-07-26 17:56 | MORECARE ---
CASE MANAGEMENT DISCHARGE SUMMARY PATIENT: GUNJAN ANNE UNIT: [id number] ADM DATE: 07/16/18 AGE: 73 : 43 SEX: M ROOM/BED: D.2227 AUTHOR: JOYA,DOC PHYSICIAN: REFERRING PHYSICIAN: KETTY WALTON MD DATE OF SERVICE: 07/26/18 Discharge Plan Patient Name: GUNJAN ANNE Facility: [facility]:[place] : 1945 Planned Disposition: Nursing Facility SAY Cert Anticipated Discharge Date: Discharge Date: Expected LOS: Initial Reviewer: [email or web address] Initial Review Date: 07/18/2018 Generated: 07/26/18 6:56 pm Comments DCP- Discharge Planning Updated by [id number]: Lawanda Hayward on 07/26/18 4:[address] 1615 CM RECEIVED CALL BACK FROM [facility]/ [facility]. THE PATIENT CAN BE DISCHARGED BACK TO FACILITY BY AMBULANCE THIS PM. HE WILL BE ADMITTED TO HOSPICE. [facility] HAS COMMUNICATED WITH NURSING STAFF AT [facility] ([facility]). THE PRIMARY NURSE CALLED REPORT. TRANSPORTATION ARRANGED VIA [employer] [facility]. 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 DCP- Discharge Planning Updated by [id number]: Catrina Connell on 07/26/18 10:[address] Received order for discharge. I called and spoke to [facility]. [facility] states they have not had anyone to sign his admission papers yet for hospice, they will call me when they do. I called and spoke to Jeny (bilingual medical assistant of [facility]), she states that usually Dr. Walton signs off on the patient's needs because his sister is not able to. I spoke with Donald Hancock and he states to hold on discharge until he can admit with hospice. CM will continue to follow and assist with discharge planning/needs. Yenny Guaman - sister - [phone] or [phone] DCP- Discharge Planning Updated by [id number]: Catrina Connell on 07/25/18 11:[address] Received an order for hospice consult. I called patient's niece (Lore) and discussed different agencies. She would like him to stay at [facility]osp[facility] if possible. [facility] for [facility]. She would like them to call her after they see the patient. She states she lives in [place] and it would be difficult for her to travel. I called Wade with [facility] and he will call his niece after review, clinical faxed. CM will continue to follow and assist with discharge planning/needs. DCP- Discharge Planning Updated by [id number]: Catrina Connell on 07/20/18 2:[address] Donald Modishears states he anticipates discharge on Monday. I called [facility] and spoke with Maximiliano. Updated clinical faxed including tube feeding order. CM will continue to follow and assist with discharge planning/needs. DCP- Discharge Planning Updated by [email or web address]: Catrina Connell on 07/18/18 3:[address] Patient Name: GUNJAN ANNE Admission Status: ER Accout number: [id number] Admission Date: 07-16-2018 : 1945 Admission Diagnosis: Attending: KETTY WALTON Current LOS: 2 Anticipated DC Date: Planned Disposition: Nursing Facility [facility] Primary Insurance: MEDICARE A & B Discharge Planning Comments: Patient is unable to communicate to complete discharge planning. I called his niece (Lore) to discuss discharge plan. Lore states he [facility] and he will return there at discharge. States since he has had a blood clot in his leg, his condition has deteriorated. States he is completely [place] [facility] [place] [facility] [place] [facility]. CM will continue to follow and assist with discharge planning/needs. Steel Burner: Catrina Connell DCPIA - Discharge Planning Initial Assessment Updated by [email or web address]: Catrina Connell on 07/18/18 3:59 pm * Is the patient Alert and Oriented? No * How many steps to enter\exit or inside your home? 0/0 * [facility] * [facility]readmission Environment [facility] * Facility Name [facility] ([facility]) * ADLs Total Dependent * Other Equipment All equipment [facility] by the [place] [facility] * List name and contact numbers for known caregivers / representatives who currently or will assist patient after discharge: Lore Blanco Marlen tanmay - [phone] Chao schwarz - [phone] * Community resources currently utilized None * Additional services required to return to the preadmission environment? No * Can the patient safely return to the preadmission environment? Yes * Has this patient been hospitalized within the prior 30 days at any hospital? No Coverage Notice Reviewer: [id number] Connell Notice Issued Date-Time: 07/18/2018 16:03 Notice Type: Patient Choice Letter Notice Delivered To: Family Member Relationship to Patient: Niece Home Economist Consumer Service Name: Lore Blanco Delivery Method: PHONE - Phone Cierra Days: Prior Verbal Notification: Recipient Understood Notice: Yes Recipient Signature: Med Rec Note Co-signed by Attending: Coverage Notice Comment: RICHIE for [facility] ([facility]) Reviewer: [id number] Connell Notice Issued Date-Time: 07/25/2018 12:06 Notice Type: Patient Choice Letter Notice Delivered To: Family Member Relationship to Patient: Niece Home Economist Consumer Service Name: Lore Blanco Delivery Method: PHONE - Phone Cierra Days: Prior Verbal Notification: Recipient Understood Notice: Yes Recipient Signature: Med Rec Note Co-signed by Attending: Coverage Notice Comment: RICHIE for [facility] Reviewer: [id number] Marlen Connell Notice Issued Date-Time: 07/26/2018 15:52 Notice Type: IM Discharge Notice Notice Delivered To: Family Member Relationship to Patient: Niece Home Economist Consumer Service Name: Lore Blanco Delivery Method: PHONE - Phone Cierra Days: Prior Verbal Notification: Recipient Understood Notice: Yes Recipient Signature: Med Rec Note Co-signed by Attending: Coverage Notice Comment: IMM explained, left at bedside, copy placed in MR Last DP export: 07/26/18 10:46 am Patient Name: GUNJAN ANNE Page 61616 at 1756 All edits/amendments must be made on the electronic document DICTATION DATE: 07/26/181755 FARM HAND: GEOFFREY 07/26/181755 RPT#: [id number] DC DATE: STATUS: ADM IN [facility] [address] [place] [address] END OF REPORT
[2018-07-26 18:07] VITALS: BP 130/64
--- NOTE | 2018-07-26 19:58 | NUR ---
[facility] HERE FOR TRANSPORT TO CORRECTION. PATIENT LEFT VIA STRECHER VIA [employer].RESP UNLABORED.NO DISTRESS NOTED. REPORT CALLED TO NEMESIO CAIN BY PREVIOUS SHIFT.
--- NOTE | 2018-07-27 10:09 | OP ---
PATIENT NAME: GUNJAN ANNE MEDICAL RECORD: [id number] :[birth year] LOCATION:D.MS [facility]2227 ADMISSION DATE:07/16/18 SURGEON: MAURIZIO CAPONE MD DATE OF OPERATION: 07/20/2018 PREOPERATIVE DIAGNOSES: 1. Dysphagia. 2. Pulmonary embolus. 3. Pneumonia. POSTOPERATIVE DIAGNOSES: 1. Dysphagia. 2. Pulmonary embolus. 3. Pneumonia. PROCEDURE: PEG tube placement. SURGEON: Muarizio Capone MD REPORT OF PROCEDURE: An Olympus endoscope was advanced through the mouth and esophagus. Once we entered the stomach, we insufflated the stomach and found an area to place our PEG tube on the antrum. A total of 5 cc of 1% lidocaine was infused into the subcutaneous tissues and a longitudinal incision was made in the midline. An Angiocath needle was inserted and a guidewire was advanced through this and grasped with an Endo snare. The wire and snare were pulled through the mouth and esophagus and the wire was affixed to a PEG tube. The wire was pulled through the abdominal wall including the PEG tube until it rested in good position at 4 cm at the skin. We reinserted the scope and saw no evidence of any bleeding and the catheter appeared to be in good position. COMPLICATIONS: None. CONDITION: Stable. ANESTHESIA: TIVA. BLOOD LOSS: Minimal. TRANSINT:[id number] Voice Confirmation ID: [id number] DOCUMENT ID: [id number] MAURIZIO CAPONE MD at 1009 CC: [id number] DICTATION DATE: 07/20/18 1107 SUPERVISOR RESEARCH SHOP: 07/20/18 1118 DIS IN 07/26/[address] [address]
--- NOTE | 2018-07-31 09:32 | MORECARE ---
CASE MANAGEMENT DISCHARGE SUMMARY PATIENT: GUNJAN ANNE UNIT: [id number] ADM DATE: 07/16/18 AGE: 73 : 43 SEX: M ROOM/BED: D.2227 AUTHOR: JOYA,DOC PHYSICIAN: REFERRING PHYSICIAN: KETTY WALTON MD DATE OF SERVICE: 07/31/18 Discharge Plan Patient Name: GUNJAN ANNE Facility: [facility]:[place] : 1945 Planned Disposition: Nursing Facility SAY Cert Anticipated Discharge Date: Discharge Date: 07/26/2018 Expected LOS: 0 Initial Reviewer: [id number] Initial Review Date: 07/18/2018 Generated: 07/31/18 10:32 am Comments DCP- Discharge Planning Updated by [email or web address]: Lawanda Hayward on 07/26/18 4:[address] 1615 CM RECEIVED CALL BACK FROM [facility] W/ [facility]. THE PATIENT CAN BE DISCHARGED BACK TO FACILITY BY AMBULANCE THIS PM. HE WILL BE ADMITTED TO HOSPICE. [facility] HAS COMMUNICATED WITH NURSING STAFF AT [facility] ([facility]). THE PRIMARY NURSE CALLED REPORT. TRANSPORTATION ARRANGED VIA [employer]. 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 DCP- Discharge Planning Updated by [email or web address]: Catrina Connell on 07/26/18 10:[address] Received order for discharge. I called and spoke to [facility] with [facility]. [facility] states they have not had anyone to sign his admission papers yet for hospice, they will call me when they do. I called and spoke to Jeny (hospital medical assistant of [facility]), she states that usually Dr. Walton signs off on the patient's needs because his sister is not able to. I spoke with Donald Hancock and he states to hold on discharge until he can admit with hospice. CM will continue to follow and assist with discharge planning/needs. Yenny Guaman - sister - [phone] or [phone] DCP- Discharge Planning Updated by [email or web address]: Catrina Connell on 07/25/18 11:[address] Received an order for hospice consult. I called patient's niece (Lore) and discussed different agencies. She would like him to stay at [facility]osp[facility] if possible. RICHIE for [facility]. She would like them to call her after they see the patient. She states she lives in [place] and it would be difficult for her to travel. I called Wade with [facility] and he will call his niece after review, clinical faxed. CM will continue to follow and assist with discharge planning/needs. DCP- Discharge Planning Updated by [email or web address]: Catrina Connell on 07/20/18 2:[address] Donald Crookears states he anticipates discharge on Monday. I called [facility] and spoke with Maximiliano. Updated clinical faxed including tube feeding order. CM will continue to follow and assist with discharge planning/needs. DCP- Discharge Planning Updated by [email or web address]: Catrina Connell on 07/18/18 3:[address] Patient Name: GUNJAN ANNE Admission Status: ER Accout number: [id number] Admission Date: 07-16-2018 : 1945 Admission Diagnosis: Attending: KETTY WALTON Current LOS: 2 Anticipated DC Date: Planned Disposition: Nursing Facility [facility] Primary Insurance: MEDICARE A & B Discharge Planning Comments: Patient is unable to communicate to complete discharge planning. I called his niece (Lore) to discuss discharge plan. Lore states he lives at [facility] ([facility]) and he will return there at discharge. States since he has had a blood clot in his leg, his condition has deteriorated. States he is completely dependent on the nursing staff at the long term. CM will continue to follow and assist with discharge planning/needs. Telehealth Case Manager: Catrina Connell DCPIA - Discharge Planning Initial Assessment Updated by [email or web address]: Catrina Connell on 07/18/18 3:59 pm * Is the patient Alert and Oriented? No * How many steps to enter\exit or inside your home? 0/0 * [facility] provide all medications * Preadmission Environment [facility] * Facility Name [facility] ([facility]) * ADLs Total Dependent * Other Equipment All equipment provided by the long term * List name and contact numbers for known caregivers / representatives who currently or will assist patient after discharge: Lore donato - [phone] Chao schwarz - [phone] * Community resources currently utilized None * Additional services required to return to the preadmission environment? No * Can the patient safely return to the preadmission environment? Yes * Has this patient been hospitalized within the prior 30 days at any hospital? No Coverage Notice Reviewer: [email or web address] Connell Notice Issued Date-Time: 07/18/2018 16:03 Notice Type: Patient Choice Letter Notice Delivered To: Family Member Relationship to Patient: Niece Swage Tender Name: Lore Blanco Delivery Method: PHONE - Phone Cierra Days: Prior Verbal Notification: Recipient Understood Notice: Yes Recipient Signature: Med Rec Note Co-signed by Attending: Coverage Notice Comment: RICHIE for [facility] ([facility]) Reviewer: [id number] Connell Notice Issued Date-Time: 07/25/2018 12:06 Notice Type: Patient Choice Letter Notice Delivered To: Family Member Relationship to Patient: Niece Swage Tender Name: Lore Blanco Delivery Method: PHONE - Phone Cierra Days: Prior Verbal Notification: Recipient Understood Notice: Yes Recipient Signature: Med Rec Note Co-signed by Attending: Coverage Notice Comment: RICHIE for [facility] Reviewer: [id number] Connell Notice Issued Date-Time: 07/26/2018 15:52 Notice Type: IM Discharge Notice Notice Delivered To: Family Member Relationship to Patient: Niece Swage Tender Name: Lore Blanco Delivery Method: PHONE - Phone Cierra Days: Prior Verbal Notification: Recipient Understood Notice: Yes Recipient Signature: Med Rec Note Co-signed by Attending: Coverage Notice Comment: IMM explained, left at bedside, copy placed in MR Last DP export: 07/26/18 4:56 pm Patient Name: GUNJAN ANNE Page 11508 at 0932 All edits/amendments must be made on the electronic document DICTATION DATE: 07/31/18930 RHINOLOGIST: GEOFFREY 07/31/18930 RPT#: [id number] DC DATE:07/26/18 STATUS: DIS IN [id number] [place] [address] END OF REPORT
== END 2018-07-26 20:01 | disposition home health service (06) | DRG 871 ==
LOC: D.ER 07:20 → D.EDHOLD 10:32 → D.MS 10:32 → D.ICU 10:35 → D.MS 07-17 11:32
PROVIDERS: Emergency Medicine; Family Medicine; ADMIT Legal Medicine; ATTEND Legal Medicine
PROC: 0DH63UZ Insertion of Feeding Device into Stomach, Percutaneous Approach (ICD-10-PCS; principal; 2018-07-16)
DX: A41.9 Sepsis, unspecified organism (principal); I26.99 Other pulmonary embolism without acute cor pulmonale; J18.9 Pneumonia, unspecified organism; R53.2 Functional quadriplegia; E43 Unspecified severe protein-calorie malnutrition; J96.01 Acute respiratory failure with hypoxia; G93.41 Metabolic encephalopathy; I82.402 Acute embolism and thrombosis of unspecified deep veins of left lower extremity; E87.0 Hyperosmolality and hypernatremia; R00.0 Tachycardia, unspecified; L89.622 Pressure ulcer of left heel, stage 2; R13.10 Dysphagia, unspecified

== ENCOUNTER 2018-07-26 21:01 | Emergency (ER) | payer MEDICARE ==
[~2018-07-26 21:01] MED LIST changes: +ASCORBIC ACID500 MG PO; +DOXYCYCLINE HY100 M2 PO; +GALZIN25 MG PO
[2018-07-26 21:06] VITALS: BMI 18.3
[2018-07-27 01:20] VITALS: BP 106/51
== END 2018-07-27 01:20 | disposition home or self-care (01) ==
LOC: D.ER 21:01
DX: K94.29 Other complications of gastrostomy (principal)